=== PATIENT | female | born 1935 | race Caucasian/White ===

== ENCOUNTER 2023-08-12 23:15 | Inpatient (IN) | payer OTHER, SELFPAY ==
[2023-08-12 19:51] VITALS: BMI 23.7
[2023-08-12 19:55] VITALS: BP 133/66
[2023-08-12 20:00] VITALS: BP 116/68
--- NOTE | 2023-08-12 20:35 | ED.GENMED ---
History of Present Illness
General
Chief Complaint: Fall
Source: patient
Exam Limitations: none
Time Seen by Provider: 08/12/23 20:04
Nursing documentation reviewed up to this point in time: agreed with
Travel History
Have you had any contact with someone who has COVID-19?: No
Do you have any symptoms of coronavirus? Fever > 100 degrees, chills, cough, shortness of breath, sore throat, loss of taste or smell, muscle aches, or headache?: No
History of Present Illness
History of Present Illness:
87-year-old female with past medical history of hypothyroidism presenting to the emergency department today with concerns of left-sided hip discomfort after a trip and fall. Patient claims he had a drink of wine she claims that she got tripped on
carpet and denies any syncopal episode. She is not sure if she hit her head but definitely hit her left hip and has had hip discomfort since. She is not able to walk since. Any movement of the left hip causes significant discomfort. Denies any
neck pain numbness weakness abdominal pain chest pain. Patient is not on blood thinners.
Review of Systems
Review of Systems
Allergies reviewed?: Yes
All Other Systems: ROS reviewed and negative except as documented in HPI and ROS
Phy Exam
Physical Exam
Physical Exam:
GENERAL: Alert , in no apparent distress
EYE: pupils equal and reactive
NECK: Supple, no significant adenopathy.
ENT: o/p clr, mmm.
CARDIAC: Regular rate and rhythm .
LUNGS: Clear breath sounds bilaterally, no acute respiratory distress, no wheezes/rales/rhonchi
ABDOMEN: Soft, without focal tenderness, no r/g, no cvat
NEUROLOGICAL: Alert and oriented, no focal neuro deficits
SKIN: Warm and dry, skin intact.
MUSCULOSKELETAL: Tender palpation to the left proximal femur and left hip region no overlying skin changes. Left leg is shortened compared to the right. Significant pain with any movement of joint. Otherwise normal range of motion and strength of
the upper extremities normal range of motion and strength of the right leg., well perfused.
PSYCH: Normal and appropriate interaction.
Course
Orders/Labs/Results
Orders:
Orders
08/12/23 20:04
Hip, Left 2-3 Views [CR Hip - LT w/wo Pel 2-3 Vw*] Urgent
Comment:
Reason For Exam: left hip pain
Include a pelvis x-ray?: Yes
08/12/23 20:09
Electrocardiogram (*1) Urgent
Reason for Study: Abdominal Pain
EKG- Treatment ONCE
IV Insert/Care/Rem.- Treatment PRN
08/12/23 20:16
Type+Screen Urgent
Complete Blood Count/With Diff Urgent
Comprehensive Metabolic Panel Urgent
08/12/23 20:38
CT Head W/o Iv Contrast Urgent
Comment:
Reason For Exam: fall may have hit head, intoxicated
08/12/23 20:39
Fentanyl Citrate/Pf [Sublimaze] 25 mcg IV NOW STA
08/12/23 22:42
Admit/Transfer Patient As Directed
Co-Sign Provider:
Level of Care: Inpatient admission
Assign to:: Telemetry
Physician / Group: Vijay
Diagnosis: Hip Fracture
Reason for Telemetry: Arrhythmia
Date to Stop Telemetry: 08/15/23
Time to Stop Telemetry: 11:00
Reason for Hospitalization: Hip Fracture
Expected length of stay greater than two midnights?: Yes
ELOS- Estimated Length of Stay in days: 3
I certify the patient meets the requirements for IP care: Yes
08/12/23 22:43
Code Status As Directed
Resuscitation Status: Full Code
08/12/23 22:55
HYDROmorphone [Dilaudid] 0.5 mg IV Q4HPRN PRN
08/13/23 01:12
Oxycodone [Roxicodone] 5 mg PO Q4HPRN PRN
Prochlorperazine [Compazine] 5 mg IV Q6HPRN PRN
08/13/23 01:12
ORTHOPEDIC CONSULT Routine
Consulting Provider: Rizwan Fitzgerald
Was physician already notified: Yes
Reason for consult: L Hip Fracture
Activity As Directed
Activity Level: Bedrest
Bladder Scan As Directed
Follow Bladder Retention/Intermittent Cath Algorithm?: Yes
PRN if no void in __ hours: 6
Frequency: Per Retention Algorithm
If Bladder Scan Result >: 400
then:: Straight cath
I/O [Intake/ Output] As Directed
Frequency: Per unit guidelines
Pneumatic Compression Sleeves As Directed
Type: Knee high
Straight Cath As Directed
Frequency: Per Retention Algorithm
Additional Instructions: straight cath as needed per acute urinary retention algorithm for 24 hrs
Additional Instructions: for bladder scan greater than 400 mL
Vital Signs As Directed
Frequency: Per unit guidelines
Oxygen Therapy [O2 Therapy] [RESP] Routine
Titrate/Wean O2 to maintain O2 sat greater than (%): 94
Rx Incentive Spirometry [RESP] Routine
Frequency: q1h while awake
DX Deep Vein Thrombosis Video Routine
08/13/23 03:00
Acetaminophen [Tylenol] 1,000 mg PO TID
08/13/23 04:53
Basic Metabolic Panel IN AM
Complete Blood Count/No Diff IN AM
08/13/23 Breakfast
NPO
Allow oral meds: Yes
Allow clear liquids: Sips of Clears
Levothyroxine [Synthroid] 50 mcg PO DAILY@0600
08/13/23 08:00
Docusate Sodium [Colace] 100 mg PO BID
Escitalopram Oxalate [Lexapro] 10 mg PO DAILY
Pantoprazole [Protonix] 40 mg PO DAILY
Polyethylene Glycol Powder [Miralax] 17 grams PO DAILY PRN
08/13/23 22:00
Melatonin 3 mg PO HS PRN
Sennosides [Senokot] 17.2 mg PO HS
08/15/23 11:00
DC Protocol for Telemetry ONCE
Abnormal Lab Results
08/12/23
20:16
WBC 11.0 H 10^3/uL
(4.8-10.8)
Abs Immat Gran (auto) 0.2 H 10^3/uL
(0-0.05)
Absolute Neuts (auto) 7.7 H 10^3/uL
(1.4-6.5)
Absolute Monos (auto) 0.7 H 10^3/uL
(0.1-0.6)
Immature Gran % 1.8 H %
(0-0.5)
Lymphocytes % 19.0 L %
(20.5-51.1)
08/12/23 20:16
08/12/23 20:16
Vital Signs
Initial and Last Documented VS:
Initial Vital Signs
Temp Pulse Resp BP Pulse Ox
98.1 F 65 23 133/66 97
08/12/23 19:55 08/12/23 19:55 08/12/23 19:55 08/12/23 19:55 08/12/23 19:55
Last Documented Vital Signs
Temp Pulse Resp BP Pulse Ox
98.1 F 82 18 118/67 95
08/13/23 15:00 08/13/23 15:00 08/13/23 15:00 08/13/23 15:00 08/13/23 15:00
MDM/Problems Addressed
MDM/Problems Addressed:
87-year-old female presenting to the emergency department after mechanical fall landing mainly on the left hip. She does not think she hit her head but is not 100% sure. She did have some wine tonight with dinner. Vital signs normal upon arrival
patient with significant pain to the left hip unable to move at the left hip secondary to pain. Otherwise denies any additional symptoms no tenderness to the neck normal HEENT exam no abdominal pain no back pain full range of motion strength of the
upper extremities and right leg. Plan for imaging of the left hip and head CT. Hip x-ray showing left-sided hip fracture patient admitted for orthopedic intervention tomorrow morning orthopedics was contacted directly. N.p.o. midnight.
*Critical Care Note
Total Time (30-74mins, 75-104mins- exclusive of procedures): Not Applicable
ED Attending Note
-
Portions of this chart may have been created with voice recognition software.� Occasional wrong word or��sound alike� substitutions may have occurred due to the inherent limitations of voice recognition software.
Discharge Plan
Departure
Patient Disposition: Admit
Date of Disposition: 08/12/23
Time of Disposition: 22:06
Admit to: Med/Surg
Admit to doctor: Vijay
Presentation/result/management discussed w/ accepting MD/DO: Hospitalist
Patient with high blood pressure during this ER visit?: No
Condition: Good
Covid-19: Not Applicable
Discharge Problem:
Closed fracture of left hip
Interventions
Interventions:
*Risk Screen - Suicide Last Done: 08/13/23 00:46
*General Assessment Last Done: 08/12/23 20:00
*Neglect/Abuse Screening Last Done: 08/12/23 20:00
ED- Fall Risk Assessment Last Done: 08/12/23 20:00
*ED COVID-19 Vaccine History Last Done: 08/13/23 00:46
*Nursing Disposition Last Done: 08/13/23 00:30
ED-Musculoskeletal Assessment Last Done: 08/12/23 20:10
ED- Neurological Assessment Last Done: 08/12/23 20:10
ED-Skin Assessment Last Done: 08/12/23 21:00
Discharge Date and Time
Discharge Date/Time: 08/13/23 00:30
[2023-08-12 20:42] LABS: % Basophils 0.8 % (0-2); % Eosinophils 2.3 % (0-6); % Immature Granulocytes 1.8 % (0-0.5); % Monocytes 6.4 % (1.7-9.3); % Neutrophils 69.7 % (42.2-75.2); Absolute Basophils 0.1 10^3/uL (0-0.2); Absolute Eosinophils 0.3 10^3/uL (0-0.7); Absolute Immature Granulocytes 0.2 10^3/uL (0-0.05); Absolute Lymphocytes 2.1 10^3/uL (1.2-3.4); Absolute Monocytes 0.7 10^3/uL (0.1-0.6); Absolute Neutrophils 7.7 10^3/uL (1.4-6.5); Hematocrit 39.9 % (37.0-47.0); Hemoglobin 13.6 g/dL (12.0-16.0); Mean Corp Hgb Conc. 34.1 g/dL (33.0-37.0); Mean Corpuscular Volume 90.9 fL (81.0-99.0); Mean Platelet Volume 9.4 fL (7.4-10.4); Nucleated Red Blood Cells % 0 %; Platelet Count 252 10^3/uL (130-400); Red Blood Cell Count 4.39 10^6/uL (4.20-5.40); Red Cell Dist. Width 13.3 % (11.5-14.5)
[2023-08-12 21:00] VITALS: BP 119/65
[2023-08-12] MEDS: SUBLIMAZE 25 MCG IV (21:01)
[2023-08-12 21:02] LABS: ALT (SGPT) 19 U/L (0-35); AST (SGOT) 29 U/L (14-36); Alkaline Phosphatase 61 U/L (38-126); Blood Urea Nitrogen 13 mg/dl (7-17); Calcium 9.6 mg/dl (8.4-10.2); Carbon Dioxide 23 mmol/L (22-30); Chloride 106 mmol/L (98-107); Estimated Creatinine Clearance 44 ml/min; Glucose 86 mg/dl (70-99); Sodium 135 mmol/L (135-145); Total Bilirubin 0.3 mg/dl (0.2-1.3); Total Protein 6.4 g/dl (6.3-8.2); eGFR > 60.00
--- NOTE | 2023-08-12 22:47 | HPS.HSE ---
Family Physician
-
Family Physician: Roney Astudillo
Chief Complaint
-
Fall, Hip Pain
History of Present Illness
Patient is an 87y F with PMH significant for hypothyroidism and anxiety / depression who presents to ED complaining of left hip pain s/p fall at home this evening. Patient states that she has been in her usual state of good health. This evening
at dinner she had 1-2 glasses of wine. She was walking back to her assisted living apartment when she fell to her L, landing on her side. Patient states that she did not strike her head nor lose consciousness. Patient denies any prodrome of
lightheadedness, dizziness, nausea, headache, etc prior to the fall. She denies any obvious trip or stumble that led to the fall.
Patient has no history of frequent falls and ambulates without an assist device at baseline.
Patient noted immediate pain in the L hip area. She was brought to the ED for further evaluation.
Medical History
Past Medical History
Past Medical History: Reports Other
Additional Past Medical History:
Hypothyroidism
DDD / Arthritis
GERD
Anxiety / Depression
Past Surgical History: Reports Other
Additional Past Surgical History:
Left Shoulder Surgery
Social History
Tobacco: Former Smoker (Quit smoking > 40 years ago.)
Alcohol: Daily (1 glass daily)
Drug: None
Personal:
Living: Assisted Living
Family History
Family History: Not pertinent
Allergies / Home Medications
Allergies reflects when Allergies were last updated in [email or web address].
Home Medications with original date entered in [email or web address]
Allergy/Medication List:
Allergies
Allergy/AdvReac Type Severity Reaction Status Date / Time
No Known Allergies Allergy Unverified 08/12/23 19:59
Home Medications
ascorbic acid (vitamin C) 500 mg tablet (Vitamin C) 500 mg PO DAILY 08/12/23
biotin 10,000 mcg chewable tablet (Hair, Skin and Nails (biotin)) 1 mcg PO DAILY 08/12/23
celecoxib 100 mg capsule (Celebrex) 100 mg PO BID 08/12/23
escitalopram oxalate 10 mg tablet 10 mg PO DAILY 08/12/23
zrfhuxehlpx-htkkwvmml-ibiw437-hyal 750 mg-100 mg-125 mg-1.65 mg tablet (Glucosamine Chondroit Complx Advan) 1 tab PO DAILY 08/12/23
guaifenesin 400 mg tablet (Mucus Relief) 400 mg PO Q4H PRN congestion 08/12/23
levothyroxine 50 mcg tablet 50 mcg PO DAILY 08/12/23
meclizine 25 mg tablet (Dramamine (meclizine)) 25 mg PO BID PRN dizziness 08/12/23
melatonin 3 mg tablet 3 mg PO HS 08/12/23
rotrsais-axf-auryp ac 400 mcg-calcium carb 500 mg-vit K1 20 mcg tablet (Women's 50 Plus Multivitamin) 1 tab PO DAILY 08/12/23
omeprazole 20 mg capsule,delayed release 20 mg PO DAILY 08/12/23
vitamin B complex 1 tab PO DAILY 08/12/23
Review of Systems
-
History Source: Patient
A 12 point ROS was completed and negative except as noted: Yes
Constitutional: Denies Fever or Chills
Respiratory: Denies Cough or Trouble Breathing
Cardiac: Denies Chest Pain, Diaphoresis, Palpitations or Syncope
Abdomen/GI: Denies Abdominal Pain, Nausea, Vomiting or Diarrhea
: Denies Dysuria, Frequency or Flank Pain
Musculoskeletal: Reports Joint Pain; Denies Edema
Neurological: Denies Dizzy or Headache
Psych: Denies Depression or Anxiety
Physical Exam
Vital Signs
Vital Signs
Temp Pulse Resp BP Pulse Ox
98.1 F 65 23 133/66 97
08/12/23 19:55 08/12/23 19:55 08/12/23 19:55 08/12/23 19:55 08/12/23 19:55
Physical Exam
General: Other (87y F in no acute distress.)
HEENT: Moist mucous membranes and PERRLA
Respiratory: Clear; No Wheezes, Rales or Rhonchi
Cardiac: S1/S2 and Regular Rhythm; No Murmur
GI: Soft, Non Tender, Non Distended and Normal Bowel Sounds
Musculoskeletal: No Clubbing, No Cyanosis, No Edema and Other (Leg lengths appear equal. No abnormal rotation.)
Neuro: AO x 3
Laboratory Results
-
08/12/23 20:16
08/12/23 20:16
Laboratory Results
Total Bilirubin 0.3 mg/dl (0.2-1.3) 08/12/23 20:16
AST 29 U/L (14-36) 08/12/23 20:16
ALT 19 U/L (0-35) 08/12/23 20:16
Alkaline Phosphatase 61 U/L (38-126) 08/12/23 20:16
Impression/Plan
-
A/P: Patient is an 87y F with PMH significant for hypothyroidism and anxiety / depression who presentsto ED complaining of L hip pain s/p fall at home / assisted living.
Left Hip Fracture
- Admit for further evaluation and treatment.
- Bedrest / pain control overnight.
- Ortho consulted for operative repair - likely in the AM.
- Patient has no personal history of heart disease, [place], CVA, etc.
- No prior history of complications related to anesthesia / surgery.
- Patient is average risk for complications compared to an otherwise healthy individual of her age.
- Benefits of planned procedure outweigh potential risks.
- OK to proceed to OR as planned without additional pre-op testing.
- PT / OT post-op.
Fall at Home
- Unclear mechanism of fall and patient denies any obvious stumble or any prodrome of dizziness, lightheadedness, etc.
- Will monitor on tele overnight to rule out arrhythmia - though this seems unlikely.
- PT / OT evaluations after surgery.
- Patient does note that she had two glasses of wine with dinner tonight (typically has 1) - this may have contributed to her fall.
Hypothyroidism
- Stable. Continue current T4 supplementation.
GERD
- Stable. Continue daily PPI.
Anxiety / Depression
- Stable. Continue Lexapro.
- Melatonin PRN for insomnia.
DVT Prophylaxis: SCDs for now. Post-op per Ortho.
Code Status: Full
[2023-08-12] MEDS: DILAUDID 0.5 MG IV (23:03)
[2023-08-13] VITALS (14 sets, daily range): BP systolic 112–155; BP diastolic 62–87; BMI 23.1
--- NOTE | 2023-08-13 02:21 | PTCARENOTE ---
Pt transferred to unit from ED 00:30 dx Left hip fracture. Pt's daughter at the bedside, pt vs WNL, slight temp 99.0, NPO for sx in am, oriented to unit, hip precautions maintained.
[2023-08-13] MEDS: ROXICODONE 5 MG PO ×2 (02:38→21:48)
[2023-08-13] MEDS: SYNTHROID 50 MCG PO (05:20)
[2023-08-13 06:19] LABS: Hematocrit 35.9 % (37.0-47.0); Mean Corp Hgb Conc. 33.4 g/dL (33.0-37.0); Mean Corpuscular Hgb 30.8 pg (27.0-31.0); Mean Corpuscular Volume 92.3 fL (81.0-99.0); Mean Platelet Volume 9.8 fL (7.4-10.4); Platelet Count 211 10^3/uL (130-400); Red Blood Cell Count 3.89 10^6/uL (4.20-5.40); Red Cell Dist. Width 13.3 % (11.5-14.5); White Blood Cell Count 11.7 10^3/uL (4.8-10.8)
--- NOTE | 2023-08-13 06:55 | W.PN.UPDATE ---
Update Note
Progress Note Update
Full orthopedic consult dictated:
Patient sustained left hip intertrochanteric fracture and will remain n.p.o. She will need open reduction internal fixation later today with gamma nail. Surgery, risk and potential complications along with postoperative course reviewed. All
questions were answered. Maileef on-call to operating room. Surgery and blood consent signed. Surgical location marked.
[2023-08-13 06:56] LABS: Blood Urea Nitrogen 16 mg/dl (7-17); Calcium 8.9 mg/dl (8.4-10.2); Carbon Dioxide 25 mmol/L (22-30); Chloride 106 mmol/L (98-107); Estimated Creatinine Clearance 50 ml/min; Glucose 96 mg/dl (70-99); Potassium 4.5 mmol/L (3.5-5.1); Sodium 135 mmol/L (135-145); eGFR > 60.00
[2023-08-13] MEDS: PROTONIX 40 MG PO (08:08)
[2023-08-13] MEDS: TYLENOL 1000 MG PO ×3 (08:09→22:48)
[2023-08-13] MEDS: LEXAPRO 10 MG PO (08:09)
[2023-08-13] MEDS: COLACE 100 MG PO ×2 (08:09→22:48)
--- NOTE | 2023-08-13 10:12 | W.PN.HOSP.TC ---
Today's Communication/Plan
-
see outlined plan
Assessment / Plan
Assessment / Plan
Assessment:
Left Hip Fracture
- X-ray: Comminuted acute fracture of the intertrochanteric left proximal femur with displacement
- pain control
- OR Today for open reduction and internal fixation of the left hip fracture with gamma nail
- see H&P for medical clearance (deemed average risk per Dr. Linares)
Fall at Home
- Unclear mechanism of fall and patient denies any obvious stumble or any prodrome of dizziness, lightheadedness, etc.
- Will monitor on tele overnight to rule out arrhythmia - though this seems unlikely.
- PT/OT evaluations after surgery.
- Patient does note that she had two glasses of wine with dinner tonight (typically has 1) - this may have contributed to her fall.
Hypothyroidism
- Stable. continue current T4 supplementation.
GERD
- Stable. continue daily PPI.
Anxiety/Depression
- Stable. continue Lexapro.
- Melatonin PRN for insomnia.
Chronic back pain
- hold Celebrex until post-op
DVT Prophylaxis: SCDs for now. Post-op per Ortho.
Code Status: Full
Anticipated Discharge: > 48 hours
Subjective/Interval History
-
Date of Service: August 13, 2023
denies any new complaints
for OR today
Objective Data
-
Labs:
Laboratory Results
08/13/23
04:53
WBC 11.7 H
Hgb 12.0
Hct 35.9 L
Plt Count 211
Sodium 135
Potassium 4.5
Chloride 106
Carbon Dioxide 25
BUN 16
Creatinine 0.7
Glucose 96
Calcium 8.9
Vital Signs:
Vital Signs
Temp Pulse Resp BP Pulse Ox
97.9 F 76 18 147/62 95
08/13/23 07:00 08/13/23 07:00 08/13/23 07:00 08/13/23 07:00 08/13/23 07:00
I&O
08/12/23 08/13/23 08/14/23
06:59 06:59 06:59
Intake Total 60 / 60
Output Total 400 / 400
Balance -340 / -340
Physical Exam
-
General: No Apparent Distress
HEENT: Normocephalic and Atraumatic
Respiratory: Negative Wheezes or Rales
Cardiac: Regular Rhythm and S1/S2
GI: Soft
Musculoskeletal: No Edema
Neuro: AO x 3
Hematologic / Lymphatic: No Lymphadenopathy
Psych: Calm
Data Reviewed
-
Total Time Spent with Patient (in minutes): 42
Labs: Labs Reviewed by me
--- NOTE | 2023-08-13 13:21 | CM ---
Addendum entered by ZOILA Gaitan 08/13/23 16:51:
updated family and patient no contract for snf at [facility] or [facility]. sent more referrals to [facility] contracted snf.
Original Note:
MEt with patient and her dgtr. Patient lives at [facility] independent living with her . uses rolling walker. There are not steps at facility. Patient has been independent, does not use device to ambulate. The apartment has shower chair,
grab bars in shower, grab bars by toilet. Discussed SNF rehab options if patient cannot go home with home care. Spoke to [facility] and they have Luis A grahamab on site. Patient could get nursing from home care agency that works with Annette Coburn.
Dgtr provided with options list and Medicare.gov rating system of snf.
Surgical repair scheduled later today with Dr. Fitzgerald.
Cm to follow for discharge planning.
[2023-08-13] MEDS: TYLENOL PO (15:49)
--- NOTE | 2023-08-13 20:48 | W.PN.UPDATE ---
Update Note
Progress Note Update
87F s/p L hip CMN with Dr. Fitzgerald
-Weightbearing as tolerated to left lower extremity
-PT/OT/discharge planning
-Regular diet placed for per primary
-Pain regimen in place
-DVT prophylaxis 325 mg daily x 30 days unless otherwise recommended by primary
-Postop antibiotics of Ancef as ordered times every 8
-Orthopedic surgery will continue to follow
--- NOTE | 2023-08-13 21:50 | PTCARENOTE ---
Pt arrived to 2S via bed from PACU. Pt aaox3 but drowsy. VSS. Pts family at bedside. Pt complains of pain. Pain meds given. 3 aquacell dressings to the left hip C/D/I. Head to to Assessment complete. Bed locked and in the lowest position. Call nair
with in reach.
[2023-08-13] MEDS: SENOKOT 17.1999999999999993 MG PO (22:48)
[2023-08-13] MEDS: ASPIRIN 325 MG PO (22:48)
[2023-08-14] VITALS (10 sets, daily range): BP systolic 92–125; BP diastolic 49–89; PULSE 77–78; O2SAT 95
[2023-08-14] MEDS: ANCEF 5 IV ×2 (04:57→12:17)
[2023-08-14] MEDS: SYNTHROID 50 MCG PO (05:01)
[2023-08-14] MEDS: ROXICODONE 5 MG PO ×2 (05:25→21:20)
[2023-08-14 06:18] LABS: Hemoglobin 11.3 g/dL (12.0-16.0); Mean Corp Hgb Conc. 33.2 g/dL (33.0-37.0); Mean Corpuscular Hgb 30.7 pg (27.0-31.0); Mean Corpuscular Volume 92.4 fL (81.0-99.0); Mean Platelet Volume 9.8 fL (7.4-10.4); Platelet Count 208 10^3/uL (130-400); Red Blood Cell Count 3.68 10^6/uL (4.20-5.40); Red Cell Dist. Width 13.3 % (11.5-14.5)
[2023-08-14 06:50] LABS: Blood Urea Nitrogen 15 mg/dl (7-17); Calcium 8.9 mg/dl (8.4-10.2); Carbon Dioxide 23 mmol/L (22-30); Chloride 102 mmol/L (98-107); Estimated Creatinine Clearance 58 ml/min; Glucose 140 mg/dl (70-99); Potassium 4.4 mmol/L (3.5-5.1); Sodium 135 mmol/L (135-145); eGFR > 60.00
[2023-08-14] MEDS: COLACE 100 MG PO ×2 (08:47→21:20)
[2023-08-14] MEDS: TYLENOL 1000 MG PO ×3 (08:47→21:20)
[2023-08-14] MEDS: PROTONIX 40 MG PO (08:47)
[2023-08-14] MEDS: LEXAPRO 10 MG PO (08:47)
[2023-08-14] MEDS: ASPIRIN 325 MG PO (08:47)
--- NOTE | 2023-08-14 09:27 | W.PN.HOSP.TC ---
Today's Communication/Plan
-
PT/OT with dc planning
follow ortho recs post-op
Assessment / Plan
Assessment / Plan
Assessment:
Left Hip Fracture
- X-ray: Comminuted acute fracture of the intertrochanteric left proximal femur with displacement
- s/p left cephalomedullary nail 08/12
- Patient may be WBAT with assistive device
- ASA 325 mg daily x4 weeks for DVT ppx.
- Maintain surgical dressing until 7-10 days post-op. Staple removal at 2 weeks post-op.
- Ortho f/u OP
- PT/OT - agreeable to SNF placement if recommended
Fall at Home
- Unclear mechanism of fall and patient denies any obvious stumble or any prodrome of dizziness, lightheadedness, etc.
- no events on tele
- PT/OT - agreeable to SNF placement if recommended
- Patient does note that she had two glasses of wine with dinner tonight (typically has 1) - this may have contributed to her fall.
Hypothyroidism
- Stable. continue current T4 supplementation.
GERD
- Stable. continue daily PPI.
Anxiety/Depression
- Stable. continue Lexapro.
- Melatonin PRN for insomnia.
Chronic back pain
- hold Celebrex until post-op
DVT Prophylaxis: SCDs + ASA per Ortho.
Code Status: Full
Anticipated Discharge: 24 - 48 hours
Subjective/Interval History
-
Date of Service: August 14, 2023
denies any new complaints at present
Objective Data
-
Labs:
Laboratory Results
08/14/23
05:40
WBC 14.0 H
Hgb 11.3 L
Hct 34.0 L
Plt Count 208
Sodium 135
Potassium 4.4
Chloride 102
Carbon Dioxide 23
BUN 15
Creatinine 0.6
Glucose 140 H
Calcium 8.9
Vital Signs:
Vital Signs
Temp Pulse Resp BP Pulse Ox
98.2 F 76 17 119/84 94
08/14/23 06:55 08/14/23 06:55 08/14/23 06:55 08/14/23 06:55 08/14/23 06:55
I&O
08/13/23 08/14/23 08/15/23
06:59 06:59 06:59
Intake Total 60 / 60 780 / 780
Output Total 400 / 400 550 / 550
Balance -340 / -340 230 / 230
Physical Exam
-
General: No Apparent Distress
HEENT: Normocephalic and Atraumatic
Respiratory: Negative Wheezes
Cardiac: Regular Rhythm and S1/S2
GI: Soft
Musculoskeletal: No Edema
Neuro: AO x 3
Hematologic / Lymphatic: No Lymphadenopathy
Psych: Calm
Data Reviewed
-
Total Time Spent with Patient (in minutes): 42
Labs: Labs Reviewed by me
--- NOTE | 2023-08-14 09:32 | W.PN.ORTHO ---
Today's Communication / Plan
-
87 yo F POD 1 left cephalomedullary nail under the direction of Dr. Fitzgerald
--Patient may be WBAT with assistive device. We appreciate the assistance of PT/OT.
--Recommend ASA 325 mg daily x4 weeks for DVT ppx.
--Hgb 11.3 this AM. Continue to monitor.
--Pain management per primary.
--Maintain surgical dressing until 7-10 days post-op. Staple removal at 2 weeks post-op.
--Case management consult for discharge planning.
--Orthopedics will continue to follow along.
Assessment
.
Distal Motor Intact: Yes
Dressing:
Clean, dry and intact.
Plan
.
Surgery / Date: L hip CMN, Amilcar, 08/12
DVT Prophylaxis: Aspirin
Activity:
Out of bed.
PT/OT
Subjective
.
.:
Ms. Berger is POD1 following her left hip cephalomedullary nail performed by Dr. Fitzgerald. She is resting comfortably in bed this morning, and reports she is doing much better than before surgery. Her pain is much improved, and she has been able
to get up and ambulate with the assistance of a walker.
Vital Signs and Labs
.
Vital Signs and Labs:
Lab Results
08/14/23 05:40
08/14/23 05:40
Temp Pulse Resp BP Pulse Ox
98.2 F 76 17 119/84 94
08/14/23 06:55 08/14/23 06:55 08/14/23 06:55 08/14/23 06:55 08/14/23 06:55
Physical Exam
-
Directed exam of the left lower extremity reveal Aquacel dressings intact with slight strikethrough of blood on proximal dressings. No tenderness to palpation about the hip. Thigh soft and compressible. Calf soft and nontender. Patient able to
wiggle toes, plantar and dorsiflex ankle. Neurovascularly intact distally.
[2023-08-14] MEDS: FLUSH (NSS) 2 FLUSH IV (12:17)
--- NOTE | 2023-08-14 15:42 | CM ---
Discharge Plan of Care: Intitial therapy recommendation was for SNF. [facility] accepted. Today PT evaluation and recommendation is now acute rehab. Patient, daughter and in agreement and preference is [facility]. Will forward referral.
[2023-08-14] MEDS: SENOKOT 17.1999999999999993 MG PO (21:20)
[2023-08-15] VITALS (7 sets, daily range): BP systolic 106–135; BP diastolic 60–75; PULSE 77–78; O2SAT 97
[2023-08-15] MEDS: SYNTHROID 50 MCG PO (05:27)
[2023-08-15] MEDS: ROXICODONE 5 MG PO ×2 (05:36→20:02)
[2023-08-15 06:41] LABS: Hemoglobin 9.6 g/dL (12.0-16.0); Mean Corp Hgb Conc. 33.1 g/dL (33.0-37.0); Mean Corpuscular Hgb 31.1 pg (27.0-31.0); Mean Corpuscular Volume 93.9 fL (81.0-99.0); Platelet Count 193 10^3/uL (130-400); Red Blood Cell Count 3.09 10^6/uL (4.20-5.40); Red Cell Dist. Width 13.5 % (11.5-14.5); White Blood Cell Count 11.9 10^3/uL (4.8-10.8)
--- NOTE | 2023-08-15 06:44 | W.PN.ORTHO ---
Today's Communication / Plan
-
PT/OT
Weightbearing as tolerated
Mechanical devices/aspirin for DVT prophylaxis
Skin clip removal 2 weeks postop
Follow-up orthopedics 1 month to check progress
[facility] once medically stable
Orthopedics to sign off for now.
Assessment
.
Distal Motor Intact: Yes
Dressing:
Clean, dry and intact.
Plan
.
Surgery / Date: L hip CMN, Amilcar, 08/12
DVT Prophylaxis: Aspirin
Activity:
Out of bed.
PT/OT
Discharge Plan: Rehab
Subjective
.
.:
Patient resting comfortably.
Vital Signs and Labs
.
Vital Signs and Labs:
Temp Pulse Resp BP Pulse Ox
97.9 F 70 18 125/61 96
08/15/23 03:28 08/15/23 03:28 08/15/23 03:28 08/15/23 03:28 08/15/23 03:28
[2023-08-15 07:08] LABS: Blood Urea Nitrogen 18 mg/dl (7-17); Calcium 8.6 mg/dl (8.4-10.2); Carbon Dioxide 30 mmol/L (22-30); Chloride 106 mmol/L (98-107); Estimated Creatinine Clearance 50 ml/min; Glucose 90 mg/dl (70-99); Potassium 4.4 mmol/L (3.5-5.1); Sodium 137 mmol/L (135-145); eGFR > 60.00
[2023-08-15] MEDS: ASPIRIN 325 MG PO (08:40)
[2023-08-15] MEDS: LEXAPRO 10 MG PO (08:40)
[2023-08-15] MEDS: TYLENOL 1000 MG PO ×2 (08:40→16:29)
[2023-08-15] MEDS: COLACE 100 MG PO (08:40)
[2023-08-15] MEDS: PROTONIX 40 MG PO (08:43)
--- NOTE | 2023-08-15 09:04 | W.PN.HOSP.TC ---
Today's Communication/Plan
-
check UA With subjective chills
CT neck for neck pain and recent fall
resume Celebrex
DC Planning SNF vs Acute
Assessment / Plan
Assessment / Plan
Assessment:
Left Hip Fracture
- X-ray: Comminuted acute fracture of the intertrochanteric left proximal femur with displacement
- s/p left cephalomedullary nail 08/12
- Patient may be WBAT with assistive device
- ASA 325 mg daily x 4 weeks for DVT ppx.
- Maintain surgical dressing until 7-10 days post-op. Staple removal at 2 weeks post-op.
- Ortho f/u OP
- PT/OT - agreeable to rehab (SNF vs Acute Rehab)
Fall at Home
- Unclear mechanism of fall and patient denies any obvious stumble or any prodrome of dizziness, lightheadedness, etc.
- no events on tele
- PT/OT - agreeable to SNF placement if recommended
- Patient does note that she had two glasses of wine with dinner tonight (typically has 1) - this may have contributed to her fall.
Neck pain
- with fall history, will check CT neck
Mild leukocytosis
subjective Chills
- no fevers
- check UA with frequent urination
- if respiratory symptoms arise, will check COVID/CXR
Hypothyroidism
- Stable. continue current T4 supplementation.
GERD
- Stable. continue daily PPI.
Anxiety/Depression
- Stable. continue Lexapro.
- Melatonin PRN for insomnia.
Chronic low back pain
- continue Celebrex
DVT Prophylaxis: SCDs + ASA per Ortho.
Code Status: Full
Dispo: SNF vs Acute when stable
Anticipated Discharge: 24 - 48 hours
Subjective/Interval History
-
Date of Service: August 15, 2023
reports some minor neck pain with side to side movements, she is unsure if she fell onto her neck during her fall
also reports chills, but no fevers and no other complaints
Objective Data
-
Labs:
Laboratory Results
08/15/23
05:27
WBC 11.9 H
Hgb 9.6 L
Hct 29.0 L
Plt Count 193
Sodium 137
Potassium 4.4
Chloride 106
Carbon Dioxide 30
BUN 18 H
Creatinine 0.7
Glucose 90
Calcium 8.6
Vital Signs:
Vital Signs
Temp Pulse Resp BP Pulse Ox
98.2 F 83 17 117/63 94
08/15/23 07:10 08/15/23 07:10 08/15/23 07:10 08/15/23 07:10 08/15/23 07:10
I&O
08/14/23 08/15/23 08/16/23
06:59 06:59 06:59
Intake Total 780 / 780 717 / 717
Output Total 550 / 550
Balance 230 / 230 717 / 717
Physical Exam
-
General: No Apparent Distress
HEENT: Normocephalic and Atraumatic
Respiratory: Negative Wheezes or Rales
Cardiac: Regular Rhythm and S1/S2
GI: Soft and Nontender
Musculoskeletal: No Edema and Other (neck full ROM, no obvious fracture on palpation)
Neuro: AO x 3
Hematologic / Lymphatic: No Lymphadenopathy
Psych: Calm
Data Reviewed
-
Total Time Spent with Patient (in minutes): 41
Labs: Labs Reviewed by me
[2023-08-15] MEDS: CELEBREX 100 MG PO ×2 (11:07→19:58)
[2023-08-15] MEDS: DULCOLAX 10 MG RECTAL (11:23)
--- NOTE | 2023-08-15 16:26 | CM ---
Patient has been accepted to [facility] acute rehab. Requires [employer] insurance authorization. Auth initiated. Reference # [id number]. Records faxed to [phone]. Opal Antony RN is nurse reviewer. Her phone # is [phone].
[2023-08-15 18:26] LABS: Urine Albumin Negative (Neg - Trace); Urine Bilirubin Negative (Negative); Urine Character Clear (Clear); Urine Color Yellow; Urine Glucose Negative (Negative); Urine Ketone Negative (Negative); Urine Leukocyte Trace (Negative); Urine Nitrite Negative (Negative); Urine Occult Blood Negative (Negative); Urine Specific Gravity 1.015 (<1.030); Urine Urobilinogen Negative (Neg - 1+)
[2023-08-15 18:32] LABS: Urine Red Blood Cell None Seen /HPF (0-2); Urine White Cell 0-2 /HPF (0-5)
[2023-08-15] MEDS: COLACE PO ×2 (19:57→20:12)
[2023-08-15] MEDS: SENOKOT PO ×2 (19:59→20:11)
[2023-08-15] MEDS: MELATONIN 3 MG PO (20:14)
[2023-08-15] MEDS: TYLENOL PO (23:35)
[2023-08-16] MEDS: ROXICODONE 5 MG PO (05:34)
[2023-08-16] MEDS: SYNTHROID 50 MCG PO (05:34)
[2023-08-16 05:53] LABS: Hematocrit 26.2 % (37.0-47.0); Hemoglobin 8.9 g/dL (12.0-16.0); Mean Corpuscular Hgb 30.9 pg (27.0-31.0); Mean Platelet Volume 9.8 fL (7.4-10.4); Platelet Count 217 10^3/uL (130-400); Red Blood Cell Count 2.88 10^6/uL (4.20-5.40); Red Cell Dist. Width 13.4 % (11.5-14.5); White Blood Cell Count 9.3 10^3/uL (4.8-10.8)
[2023-08-16 06:34] LABS: Blood Urea Nitrogen 21 mg/dl (7-17); Calcium 8.6 mg/dl (8.4-10.2); Carbon Dioxide 30 mmol/L (22-30); Chloride 105 mmol/L (98-107); Estimated Creatinine Clearance 50 ml/min; Glucose 92 mg/dl (70-99); Potassium 4.2 mmol/L (3.5-5.1); Sodium 136 mmol/L (135-145); eGFR > 60.00
[2023-08-16] MEDS: LEXAPRO 10 MG PO (07:46)
[2023-08-16] MEDS: CELEBREX 100 MG PO ×2 (07:46→19:46)
[2023-08-16] MEDS: COLACE 100 MG PO ×2 (07:46→19:46)
[2023-08-16] MEDS: PROTONIX 40 MG PO (07:46)
[2023-08-16] MEDS: ASPIRIN 325 MG PO (07:46)
[2023-08-16] MEDS: TYLENOL 1000 MG PO ×2 (07:47→16:41)
[2023-08-16 07:55] VITALS: BP 110/60
--- NOTE | 2023-08-16 09:47 | CM ---
CM received update from previous CM, auth has been denied for acute rehab, reason being they do not feel patient needs three hours of therapy, peer to peer review can be accepted until 08/19/23 by 5:00 p.m. to [phone]. CM spoke with patients
daughter Moraima [phone], provided update. CM will send referrals to [facility] for SNF. CM sent TT to [facility] with peer to peer review information. CM will continue to follow for discharge planning needs.
Plan; peer to peer review for acute rehab denial, SNF referrals sent us back up option.
--- NOTE | 2023-08-16 10:03 | CON.MD ---
Consultation - Medical
-
Referring Provider: Dr. Estrella Cochran
Chief Complaint: Left hip fracture
History of Present Illness: 87-year-old female with PMH (as below) presented to [facility] on 08/12/2023 after a fall after having 2 glasses of wine left side with significant left hip pain. She had a left hip intramedullary nail procedure
done 08/13/2023. Weightbearing as tolerated. Plan for full dose aspirin for 4 weeks for DVT prophylaxis with stable removal in 2 weeks. Noted to have chills 08/16/23. Overall patient is feeling tired, had chills earlier. Notes that she was just
told she has pneumonia and will need to take antibiotics. CT of the chest 08/15 noting:
IMPRESSION:
MILD to MODERATE MULTIFOCAL PERIPHERAL ENDOBRONCHIAL INFECTION (greatest in the inferior lingula). Mild to moderate amount of multifocal peripheral endobronchial impaction, bronchial wall thickening, and peripheral tree-in-bud endobronchial
opacities. Atypical mycobacterial infection is a diagnostic possibility.
RECOMMENDATION: If the patient is considered high risk for lung cancer, a follow-up chest CT examination in 12 months is recommended.
Past Medical History: Hypothyroidism, anxiety, depression, degenerative disc disease, arthritis, GERD
Procedure History: , left shoulder surgery
Family History: None pertinent
Social History:
Functional Level Premorbidly: Independent with all activities, gets 3 meals a day from assisted living.
Functional Level Currently:�� Min assist lower extremity self-care, min assist toilet transfer, min assist with transfers, min assist ambulating 10 feet x 2 with rolling walker.
Tobacco: Quit smoking over 40 years ago.
Alcohol: 1 glass of wine daily
Drug use: Denies
Lives with: Home in independent care portion of assisted living facility with spouse.
24-hour assistance available: Yes
Number of floors: 1
# steps to enter: 0
Driving: No
Occupation: Retired
�Allergies:
Allergy/AdvReac Type Severity Reaction Status Date / Time
No Known Allergies Allergy Unverified 08/12/23 19:59
Review of Systems:
Constitutional: (x) abNormal _fatigue. Having chills, just told she has pneumonia.
Eye: (x) Normal _
Ear/Nose/Throat: (x) Normal _
Respiratory: (x) Normal _
Cardiovascular: (x) Normal _
Gastrointestinal: (x) Normal _
Genitourinary: (x) Normal _
Musculoskeletal: (x) abNormal _hip pain
Integumentary: (x) Normal _
Neurologic: (x) Normal _
Psychiatric: (x) Normal _
Endocrine: (x) Normal _
Hematologic/Lymphatic: (x) Normal _
Allergic/Immunologic: (x) Normal _
Medications:
Active Current Visit Medication List
Category Date Time Status
Acetaminophen [Tylenol] Med 08/13/23 08:00 Active
1,000 mg PO TID
Aspirin Med 08/13/23 21:00 Active
325 mg PO DAILY
Bisacodyl [Dulcolax] Med 08/15/23 11:14 Active
10 mg RECTAL DAILYPRN PRN
Celecoxib [Celebrex] Med 08/15/23 10:00 Active
100 mg PO BID
Docusate Sodium [Colace] Med 08/13/23 08:00 Active
100 mg PO BID
Escitalopram Oxalate [Lexapro] Med 08/13/23 08:00 Active
10 mg PO DAILY
Flush (0.9% Sodium Chloride) [Flush (Nss)] Med 08/13/23 03:00 Active
See Dose Instructions IV PER PROTOCOL
HYDROmorphone [Dilaudid] Med 08/13/23 06:57 Active
0.5 mg IV Q4HPRN PRN
Levothyroxine [Synthroid] Med 08/13/23 06:00 Active
50 mcg PO DAILY@0600
Melatonin Med 08/13/23 22:00 Active
3 mg PO HS PRN
Oxycodone [Roxicodone] Med 08/13/23 01:12 Active
5 mg PO Q4HPRN PRN
Pantoprazole [Protonix] Med 08/13/23 08:00 Active
40 mg PO DAILY
Polyethylene Glycol Powder [Miralax] Med 08/13/23 08:00 Active
17 grams PO DAILY PRN
Prochlorperazine [Compazine] Med 08/13/23 01:12 Active
5 mg IV Q6HPRN PRN
Sennosides [Senokot] Med 08/13/23 22:00 Active
17.2 mg PO HS
Vitals:
Temp Pulse Resp BP Pulse Ox
99.2 F 74 16 110/60 95
08/16/23 07:55 08/16/23 07:55 08/16/23 07:55 08/16/23 07:55 08/16/23 07:55
Height 5 ft 4 in
Actual Weight 60.866 kg
Body Mass Index (BMI) 23.1
Physical Exam:
General Appearance/Observation: Well-developed, well-nourished female in no apparent distress.
Pain/Comfort Assessment: Mild to moderate pain in hip.
Mood/Affect: Appropriate
Integumentary/Operative Site: Left hip incisions with moderate upper Aquacel serosanguineous drainage, minimal otherwise. Significant bruising throughout the hip
�� Pressure Ulcer Evaluation: absent over heels.
Eyes: Conjunctiva/Lids: normal ��� Pupils: pupils equal round and reactive to light and Accommodation
Ears/Nose/Throat: oral mucosa moist,� throat clear.������������ Lips/Teeth/Gums: normal
Neck: No muscle spasm or tenderness
Cardiovascular: Heart: regular, no murmur
Pulses: dorsalis pedis 2+ bilaterally
Respiratory: Respiratory Effort/Chest Expansion: normal ������ Auscultation: Clear to auscultation bilaterally
Gastrointestinal: abdomen not tender, no distension, normal abdominal bowel sounds
Genitourinary: No [place]
Extremities: Edema: None Cyanosis: None Trophic changes: None
Neurology Exam:
Orientation: Alert, Oriented to self, Time, Place but takes significant time to recall.
Memory: Impaired
Repetition: Intact
Comprehension: Intact
Two step command: Intact
Naming: Intact
Cranial Nerves:
�� CNII: Pupillary light reflex: Intact��
�� CN III, IV, : Extraocular muscles: Intact
�� CN VII: Facial movement: Symmetric
�� CN VIII: Hearing: Normal
�� CN IX/X: Speech & swallow: Normal, Position of Uvula: Midline
�� CN XI: Shoulder shrug: Symmetric
�� CN XII: Tongue protrusion: Midline
Sensory:
�� Light touch: Intact in bilateral upper and lower extremities, no extinction to double simultaneous stimulation
Reflexes:
�� Biceps: 2+ bilaterally
�� Brachioradialis: 2+ bilaterally
�� Triceps: 2+ bilaterally
�� Patellar: 2+ bilaterally
�� Achilles: 2+ bilaterally
�� Babinski: Down going bilaterally
�� Clonus: None
�� Adilia: Negative bilaterally
Musculoskeletal:Motor: (Manual muscle scale 0-5)
Muscle SA EF WE EE FF FA HF KE DF EHL PF
Right� 4 5 5 5 5 5 4 5 5 5 5
Left 4 5 5 5 5 5 2 3 5 5 5
Tone: Normal in all extremities
Range of Motion: Passively within normal limits in all extremities
Lab Results
Laboratory Data
08/16/23 05:18
08/16/23 05:18
Total Bilirubin 0.3 mg/dl (0.2-1.3) 08/12/23 20:16
AST 29 U/L (14-36) 08/12/23 20:16
ALT 19 U/L (0-35) 08/12/23 20:16
Alkaline Phosphatase 61 U/L (38-126) 08/12/23 20:16
Total Protein 6.4 g/dl (6.3-8.2) 08/12/23 20:16
Albumin 4.0 g/dl (3.5-5.0) 08/12/23 20:16
Diagnostic Results: as per HPI
Assessment
87-year-old female with PMH (Hypothyroidism, anxiety, depression, degenerative disc disease, arthritis, GERD) with 08/12/2023 follow-up with left hip fracture s/p intramedullary nail 08/13/2023.
Plan
PM&R PT/OT to increase independence with ADLs, improve balance, coordination, endurance, strength, mobility, community reintegration, decreased burden of care on others and family education.
Left hip fracture s/p ORIF 08/13/2023: Monitor incision, pain control, weightbearing as tolerated, dressings can be removed postop day 7, karla removed postop day 14. Maintain full range of motion.
Pneumonia: Found on CT chest today. Patient noting chills and not feeling well. Could be partial reason for some slower cognitive processing. Further workup ongoing.
Hypothyroidism: levothyroxine
Postoperative anemia: Monitor. Continue to monitor.
FEN: Regular
Anxiety/depression: Psychology consult.� Monitor mood, adjust Lexapro as needed. Melatonin for sleep
Skin: monitor for pressure sores/rashes/lesions.
Pain: acetaminophen or oxycodone as needed. Celebrex 100 mg twice a day helpful.
Bowel: Senna, PRN bisacodyl.
Bladder: Time void, PVRs, PRN straight cath.
Alcohol use: Alcohol cessation suggested
GI Prophylaxis: Pantoprazole
DVT Prophylaxis: Mechanical and full dose aspirin.
Pulmonary: Incentive spirometry
Safety: Continue to reinforce assistance with all transfers.
Code Status:� Full code
Dispo (date/plan/equipment needs): Home with family care.
Functional and Medical Goals: Modified Independent with ADL�s, ambulation, transfers
Discharge Destination: Acute inpatient rehabilitation
Attending statement:
I saw and examined the patient today. Reviewed care plan with case management, patient and physician golf player assistant. I agree with the above subjective, physical exam, and plan as documented above.
A total of 60 minutes were spent with the patient preparing for the evaluation, obtaining history, performing examination and evaluation, counseling, data review, case management, care coordination, sales order processor, and EMR documentation.
Summary of recommendations:
- Discharge Destination: Acute inpatient rehabilitation
Left hip fracture s/p ORIF 08/13/2023: Monitor incision, pain control, weightbearing as tolerated, dressings can be removed postop day 7, karla removed postop day 14. Maintain full range of motion.
Pain: acetaminophen or oxycodone as needed. Celebrex 100 mg twice a day helpful.
DVT Prophylaxis: Mechanical and full dose aspirin.
Pneumonia: Found on CT chest today. Patient noting chills and not feeling well. Could be partial reason for some slower cognitive processing. Further workup ongoing.
Thank you for allowing me to care for your patient. Please contact me with any questions or concerns.
--- NOTE | 2023-08-16 10:55 | CM ---
Addendum entered by Becka Hay 08/16/23 14:32:
Per Dr. Shanks, peer to peer denied, patient only approved for SNF. CM awaiting response of accepting SNF facility. CM will continue to follow for discharge planning needs.
Plan; SNF pending accepting facility, will require auth.
Original Note:
Received call this AM from Opal Antony RN, at [facility] ([phone]). [facility] [employer] [facility] has declined admission to [facility] acute rehab. He does not feel patient requires 3 hours of therapy per day. Peer to peer is offered @
[phone]. [facility] has until 5PM on 08/19/23 to initiate peer to peer. Message relayed to current CM.
[2023-08-16 11:23] VITALS: BP 115/67; PULSE 73; O2SAT 93
--- NOTE | 2023-08-16 11:26 | W.PN.HOSP.TC ---
Today's Communication/Plan
-
start Rocephin, doxy. AM procal
DC Planning to SNF vs acute pending peer to peer process; but not stable today with antibiotics being initiated. CM aware.
Assessment / Plan
Assessment / Plan
Assessment:
Left Hip Fracture
- X-ray: Comminuted acute fracture of the intertrochanteric left proximal femur with displacement
- s/p left cephalomedullary nail 08/12
- Patient may be WBAT with assistive device
- ASA 325 mg daily x 4 weeks for DVT ppx.
- Maintain surgical dressing until 7-10 days post-op. Staple removal at 2 weeks post-op.
- Ortho f/u OP
- PT/OT - agreeable to rehab placement (SNF vs Acute Rehab pending auth)
Fall at Home
- Unclear mechanism of fall and patient denies any obvious stumble or any prodrome of dizziness, lightheadedness, etc.
- no events on tele
- PT/OT - agreeable to rehab placement
- Patient does note that she had two glasses of wine with dinner tonight (typically has 1) - this may have contributed to her fall.
Neck pain
- CT Cspine: Degenerative changes. No fracture.
Mild leukocytosis
subjective Chills
- mild temps
- UA clear
- CT chest (performed on follow up of lingular consolidation seen on C. Spine CT) shows: MILD to MODERATE MULTIFOCAL PERIPHERAL ENDOBRONCHIAL INFECTION (greatest in the inferior lingula). Mild to moderate amount of multifocal peripheral
endobronchial impaction, bronchial wall thickening, and peripheral tree-in-bud endobronchial opacities. Atypical mycobacterial infection is a diagnostic possibility.
- start Rocephin/doxy, day 1
- check procal
Hypothyroidism
- Stable. continue current T4 supplementation.
GERD
- Stable. continue daily PPI.
Anxiety/Depression
- Stable. continue Lexapro.
- Melatonin PRN for insomnia.
Chronic low back pain
- continue Celebrex
DVT Prophylaxis: SCDs + ASA per Ortho.
Code Status: Full
Dispo: SNF vs Acute when stable and auth obtained. Currently informed by CM that acute rehab denied by insurance; pending peer to peer by CM physician reviewer.
Anticipated Discharge: 24 - 48 hours
Subjective/Interval History
-
Date of Service: August 16, 2023
mild chills, low grade temp of 99
no hypoxia, no chest pain, no SOB
Objective Data
-
Labs:
Laboratory Results
08/16/23
05:18
WBC 9.3
Hgb 8.9 L
Hct 26.2 L
Plt Count 217
Sodium 136
Potassium 4.2
Chloride 105
Carbon Dioxide 30
BUN 21 H
Creatinine 0.7
Glucose 92
Calcium 8.6
Vital Signs:
Vital Signs
Temp Pulse Resp BP Pulse Ox
99.2 F 74 16 110/60 95
08/16/23 07:55 08/16/23 07:55 08/16/23 07:55 08/16/23 07:55 08/16/23 07:55
I&O
08/15/23 08/16/23 08/17/23
06:59 06:59 06:59
Intake Total 717 / 717 840 / 840
Output Total 400 / 400
Balance 717 / 717 440 / 440
Physical Exam
-
General: No Apparent Distress
HEENT: Normocephalic and Atraumatic
Respiratory: Negative Wheezes
Cardiac: Regular Rhythm and S1/S2
GI: Soft
Genito-urinary: No Costovertebral Tender
Musculoskeletal: No Edema
Neuro: AO x 3
Psych: Calm
Data Reviewed
-
Total Time Spent with Patient (in minutes): 41
Labs: Labs Reviewed by me
[2023-08-16 11:39] VITALS: BP 115/67; PULSE 74; O2SAT 93
[2023-08-16] MEDS: VIBRAMYCIN 100 MG PO ×2 (12:25→19:46)
[2023-08-16] MEDS: STERILE WATER FOR INJECTION 10 ML IV (12:25)
[2023-08-16] MEDS: ROCEPHIN 1000 MG IV (12:27)
[2023-08-16] MEDS: ANESTHETIC LOZENGE 1 LOZENGE PO (13:46)
[2023-08-16 14:56] VITALS: BP 122/56
[2023-08-16] MEDS: NON-FORMULARY ITEM 1 UNIT OPHTH (20:47)
[2023-08-16] MEDS: REFRESH EYE DROPS (PF) OPHTH ×2 (20:47→20:53)
[2023-08-16] MEDS: SENOKOT PO (20:48)
[2023-08-16] MEDS: NON-FORMULARY ITEM 15 UNIT PO (20:48)
[2023-08-16] MEDS: MELATONIN 3 MG PO (20:49)
[2023-08-16 23:00] VITALS: BP 119/68
[2023-08-16] MEDS: TYLENOL PO (23:00)
[2023-08-16] MEDS: STERILE WATER FOR INJECTION IV (23:00)
[2023-08-17] MEDS: SYNTHROID 50 MCG PO (05:14)
[2023-08-17 06:26] LABS: Hematocrit 25.5 % (37.0-47.0); Hemoglobin 8.4 g/dL (12.0-16.0); Mean Corp Hgb Conc. 32.9 g/dL (33.0-37.0); Mean Corpuscular Hgb 30.8 pg (27.0-31.0); Mean Corpuscular Volume 93.4 fL (81.0-99.0); Mean Platelet Volume 9.5 fL (7.4-10.4); Platelet Count 235 10^3/uL (130-400); Red Blood Cell Count 2.73 10^6/uL (4.20-5.40); Red Cell Dist. Width 13.6 % (11.5-14.5); White Blood Cell Count 8.6 10^3/uL (4.8-10.8)
[2023-08-17 06:54] LABS: Procalcitonin 0.06 ng/ml (0.0-0.25)
[2023-08-17 07:00] VITALS: BP 124/65
[2023-08-17 07:10] LABS: Blood Urea Nitrogen 23 mg/dl (7-17); Calcium 8.6 mg/dl (8.4-10.2); Carbon Dioxide 27 mmol/L (22-30); Chloride 107 mmol/L (98-107); Estimated Creatinine Clearance 58 ml/min; Glucose 98 mg/dl (70-99); Sodium 134 mmol/L (135-145); eGFR > 60.00
[2023-08-17] MEDS: CELEBREX 100 MG PO ×2 (07:35→19:14)
[2023-08-17] MEDS: VIBRAMYCIN 100 MG PO (07:35)
[2023-08-17] MEDS: TYLENOL 1000 MG PO ×3 (07:35→21:14)
[2023-08-17] MEDS: COLACE 100 MG PO ×2 (07:35→19:14)
[2023-08-17] MEDS: PROTONIX 40 MG PO (07:35)
[2023-08-17] MEDS: ASPIRIN 325 MG PO (07:35)
[2023-08-17] MEDS: LEXAPRO 10 MG PO (07:35)
[2023-08-17] MEDS: ROXICODONE 5 MG PO ×2 (09:32→19:26)
[2023-08-17 10:50] VITALS: BP 106/61; PULSE 88; O2SAT 96
[2023-08-17] MEDS: STERILE WATER FOR INJECTION 10 ML IV (11:03)
[2023-08-17] MEDS: ROCEPHIN 1000 MG IV (11:03)
--- NOTE | 2023-08-17 11:58 | W.PN.HOSP.TC ---
Today's Communication/Plan
-
Consult ID
Continue with empirical antibiotics for now
Await placement
Assessment / Plan
Assessment / Plan
Assessment:
Left Hip Fracture
- X-ray: Comminuted acute fracture of the intertrochanteric left proximal femur with displacement
- s/p left cephalomedullary nail 08/12
- Patient may be WBAT with assistive device
- ASA 325 mg daily x 4 weeks for DVT ppx.
- Maintain surgical dressing until 7-10 days post-op. Staple removal at 2 weeks post-op.
- Ortho f/u OP
- PT/OT - agreeable to rehab placement (SNF vs Acute Rehab pending auth)
Fall at Home
- Unclear mechanism of fall and patient denies any obvious stumble or any prodrome of dizziness, lightheadedness, etc.
- no events on tele
- PT/OT - agreeable to rehab placement
- Patient does note that she had two glasses of wine with dinner tonight (typically has 1) - this may have contributed to her fall.
Neck pain
- CT Cspine: Degenerative changes. No fracture.
Mild leukocytosis-resolved. Cannot rule out reactive to surgery
Chronic cough with CT chest findings as below
- CT chest (performed on follow up of lingular consolidation seen on C. Spine CT) shows: MILD to MODERATE MULTIFOCAL PERIPHERAL ENDOBRONCHIAL INFECTION (greatest in the inferior lingula). Mild to moderate amount of multifocal peripheral
endobronchial impaction, bronchial wall thickening, and peripheral tree-in-bud endobronchial opacities. Atypical mycobacterial infection is a diagnostic possibility.
-Not acting like typical bacterial pneumonia. Suspect chronic infectious diseases.
-Check inflammatory markers including CRP and ESR. Consult ID. While waiting for culture data continue with antibacterial treatments.
Acute anemia secondary to acute blood loss-last 2 days H&H is stable. She is not symptomatic without any chest pain or weakness/fatigue.
Hypothyroidism
- Stable. continue current T4 supplementation.
GERD
- Stable. continue daily PPI.
Anxiety/Depression
- Stable. continue Lexapro.
- Melatonin PRN for insomnia.
Chronic low back pain
- continue Celebrex
DVT Prophylaxis: SCDs + ASA per Ortho.
Code Status: Full
Total time spent on today's encounter was 52 minutes which included time spent in counseling the patient regarding diagnosis and treatment plan as listed above, goals of care, and symptom management. Case was discussed with nursing staff,
specialists.All labs and imaging personally reviewed by me. Remainder the time spent in detailed review of previous records, lab data, imaging, and other medical provider documentation.
Anticipated Discharge: 24 - 48 hours
Subjective/Interval History
-
Date of Service: August 17, 2023
Pain from the fracture repair site is okay.
Denies any prior history of lung issues. She did start having cough in the last 6 months. She brought it to the attention of the PCP but no further investigation was felt warranted. Mostly nonproductive cough but when she brings phlegm up it is
mostly clear.
Denies any shortness of breath with that. Remote smoker.
No prior history of pneumonias.
Denies any chronic sweats in the night or chills or fevers.
Objective Data
-
Labs:
Laboratory Results
08/17/23
06:18
WBC 8.6
Hgb 8.4 L
Hct 25.5 L
Plt Count 235
Sodium 134 L
Potassium 4.0
Chloride 107
Carbon Dioxide 27
BUN 23 H
Creatinine 0.6
Glucose 98
Calcium 8.6
Vital Signs:
Vital Signs
Temp Pulse Resp BP Pulse Ox
97.9 F 80 16 124/65 95
08/17/23 07:00 08/17/23 07:00 08/17/23 07:00 08/17/23 07:00 08/17/23 07:00
I&O
08/16/23 08/17/23 08/18/23
06:59 06:59 06:59
Intake Total 840 / 840 720 / 720
Output Total 400 / 400
Balance 440 / 440 720 / 720
Review of Systems
-
Constitutional: Denies Fever
EENT: Denies Sore Throat
Respiratory: Reports Cough; Denies Trouble Breathing
Cardiac: Denies Chest Pain
Abdomen/GI: Denies Abdominal Pain, Nausea or Vomiting
Neuro: Denies Dizzy
Physical Exam
-
HEENT: Moist Mucous Membranes
Respiratory: Clear to Auscultation; Negative Wheezes or Crackles
Cardiac: Regular Rhythm and S1/S2; Negative Tachycardic
GI: Soft
Neuro: AO x 3
Data Reviewed
-
Labs: Labs Reviewed by me
--- NOTE | 2023-08-17 13:58 | CON.ID ---
Consultation
-
Date/Time Consultation Requested: August 17, 2023 1156
Date/Time Consultation Performed: August 17, 2023 1400
Requesting Provider: Dr. Jignesh Vu
Performing Provider: Dr. Romelia Dodson
Reason for Consultation: Evaluate for chronic lung infection
Chief Complaint / Past History
Chief Complaint
Left hip pain
History of Present Illness
87-year-old female with history of hypothyroidism who fell at home after drinking 2 glasses of wine and came to the ER on August 11. Hip x-ray showed comminuted acute fracture of the intertrochanteric left proximal femur with displacement. On July
, she underwent left hip intramedullary nail. August 14, she complained of chills. UA negative.CT cervical spine ordered for neck pain which picked up right upper lobe linear opacity, which led to chest CT on August 15: With findings of multifocal
bilateral peripheral bronchial wall thickening and endobronchial impaction with clustered tree-in-bud endobronchial opacities bilaterally. There are multiple small peripheral subpleural pulmonary nodules. She was started on ceftriaxone and
doxycycline yesterday. Patient reports no history of chronic cough, GRAMAJO, weight loss , or poor appetite. She had been always active. Had mild cough with white phlegm prior to admission, now resolved, no sputum. I spoke to her daughter Moraima on the
phone. 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 She is following with [facility]. She is being observed only due to little to no symptoms.
Past History
Additional Past Medical History:
Hypothyroidism
Pulmonary ELIA, watchful observation
Anxiety/depression
Arthritis
Left shoulder surgery
Allergy History:
No Known Allergies Allergy (Unverified 08/12/23 19:59)
Medications Reviewed: Yes
Current Antibiotics:
Doxycycline
Ceftriaxone
Social History
Tobacco: Non-Smoker
Alcohol: Daily (1 glass of wine)
Drug: None
Living: Assisted Living
Family History
Family History: Not Pertinent
Review of Systems
Review of Systems
General: Negative Fever, Chills or Change in Appetite
HEENT: Negative Sinus Problems or Headache
Cardiovascular: Negative Chest Pain or Dyspnea
Respiratory: Negative Dyspnea or Cough
Gasteroenterology: Other (no diarrhea); Negative Weight Loss, Nausea or Vomiting
Genital / Urological: Negative Dysuria or Flank Pain
Skin / Hair / Nails: Negative Rash
Neurological: Negative Headache or Dizziness
All systems: All other systems were reviewed and were negative
Vital Signs
Temp Pulse Resp BP Pulse Ox
97.9 F 80 16 124/65 95
08/17/23 07:00 08/17/23 07:00 08/17/23 07:00 08/17/23 07:00 08/17/23 07:00
Physical Exam
Physical Exam
Constitutional: No Acute Distress and Comfortable
Eyes: Negative No Conjunctival Hemorrhage or Sclera Anicteric
Cardiovascular: Regular Rate and S1/S2
Pulmonary: Clear; Negative Wheezes, Rales, Rhonchi or Coarse
Gastrointestinal: Soft, Non Tender and Non Distended
Genito-Urinary: Negative CVA Tenderness
Extremities: Negative Edema
Neurological: AO x 3
Lab / Diagnostic Study Results
08/17/23 06:18
08/17/23 06:18
Abs Immat Gran (auto) 0.2 10^3/uL (0-0.05) H 08/12/23 20:16
Absolute Neuts (auto) 7.7 10^3/uL (1.4-6.5) H 08/12/23 20:16
Absolute Lymphs (auto) 2.1 10^3/uL (1.2-3.4) 08/12/23 20:16
Absolute Monos (auto) 0.7 10^3/uL (0.1-0.6) H 08/12/23 20:16
Absolute Basos (auto) 0.1 10^3/uL (0-0.2) 08/12/23 20:16
Immature Gran % 1.8 % (0-0.5) H 08/12/23 20:16
Neutrophils % 69.7 % (42.2-75.2) 08/12/23 20:16
Lymphocytes % 19.0 % (20.5-51.1) L 08/12/23 20:16
Monocytes % 6.4 % (1.7-9.3) 08/12/23 20:16
Eosinophils % 2.3 % (0-6) 08/12/23 20:16
Basophils % 0.8 % (0-2) 08/12/23 20:16
Procalcitonin 0.06 ng/ml (0.0-0.25) 08/17/23 06:18
Ur Squamous Epith Cells 3-5 /LPF (Few) 08/15/23 18:18
Microbiology Results
08/16/[address]: MILD to MODERATE MULTIFOCAL PERIPHERAL ENDOBRONCHIAL INFECTION (greatest in the inferior lingula). Mild to moderate amount of multifocal peripheral endobronchial impaction, bronchial wall thickening, and peripheral tree-in-bud
endobronchial opacities. Atypical mycobacterial infection is a diagnostic possibility.
Assessment / Plan
# Pulmonary ELIA, known history
- Follows with pulmonary at [facility] [address]
- Agree with observation only as patient without symptoms
- The CT findings are consistent with ELIA
- Follow-up with her [facility].
She should take a copy of current CT to her [facility] for comparison.
# CAP ruled out.
- Procal negative.
- Afebrile.
- Leukocytosis resolved prior to abx.
-DC doxycycline and ceftriaxone.
ID will sign off.
[2023-08-17 15:00] VITALS: BP 142/79
--- NOTE | 2023-08-17 15:39 | PTCARENOTE ---
Large amount of sanguineous fluid coming from patients middle aquacell dressing. Dr. Vu notified of large amounts of drainage and hemoglobin at 8.4. Dr. Vu stated that he will order hemoglobin and hematocrit in AM and to notify ortho.
Awilda Way notified and ordered to change middle aquacell dressing. Aquacell dressing changed by RN. Care ongoing at this time.
[2023-08-17] MEDS: NON-FORMULARY ITEM 1 UNIT PO (21:11)
[2023-08-17] MEDS: REFRESH EYE DROPS (PF) OPHTH ×2 (21:12→21:16)
[2023-08-17] MEDS: NON-FORMULARY ITEM 1 UNIT OPHTH (21:12)
[2023-08-17] MEDS: SENOKOT 17.1999999999999993 MG PO (21:14)
[2023-08-17] MEDS: MELATONIN 3 MG PO (21:15)
[2023-08-17 23:09] VITALS: BP 113/63
[2023-08-18] MEDS: SYNTHROID 50 MCG PO (05:04)
[2023-08-18] MEDS: ROXICODONE 5 MG PO (05:04)
[2023-08-18 07:08] LABS: Hematocrit 25.6 % (37.0-47.0); Hemoglobin 8.4 g/dL (12.0-16.0); Mean Corp Hgb Conc. 32.8 g/dL (33.0-37.0); Mean Corpuscular Hgb 30.7 pg (27.0-31.0); Mean Corpuscular Volume 93.4 fL (81.0-99.0); Mean Platelet Volume 9.5 fL (7.4-10.4); Platelet Count 268 10^3/uL (130-400); Red Blood Cell Count 2.74 10^6/uL (4.20-5.40); Red Cell Dist. Width 13.9 % (11.5-14.5)
[2023-08-18 07:20] VITALS: BP 113/58
[2023-08-18] MEDS: LEXAPRO 10 MG PO (07:31)
[2023-08-18] MEDS: COLACE 100 MG PO ×2 (07:31→19:31)
[2023-08-18] MEDS: TYLENOL 1000 MG PO ×3 (07:31→21:00)
[2023-08-18] MEDS: CELEBREX 100 MG PO ×2 (07:31→19:30)
[2023-08-18] MEDS: ASPIRIN 325 MG PO (07:31)
[2023-08-18] MEDS: PROTONIX 40 MG PO (07:31)
[2023-08-18 08:14] LABS: Erythrocyte Sed Rate 48 mm/hour (0-20)
[2023-08-18 09:14] VITALS: BP 129/71; PULSE 73; O2SAT 97
--- NOTE | 2023-08-18 14:38 | CM ---
Addendum entered by Nilam Ariza 08/18/23 14:39:
Peer to peer denied. SNF backup and referrals sent. Needs auth.
Original Note:
Awaiting peer to peer determination.
--- NOTE | 2023-08-18 15:15 | W.PN.HOSP.TC ---
Today's Communication/Plan
-
DC planning
Assessment / Plan
Assessment / Plan
Assessment:
Left Hip Fracture
- X-ray: Comminuted acute fracture of the intertrochanteric left proximal femur with displacement
- s/p left cephalomedullary nail 08/12
- Patient may be WBAT with assistive device
- ASA 325 mg daily x 4 weeks for DVT ppx.
- Maintain surgical dressing until 7-10 days post-op. Staple removal at 2 weeks post-op.
- Ortho f/u OP
- PT/OT - agreeable to rehab placement (SNF vs Acute Rehab pending auth)
Fall at Home
- Unclear mechanism of fall and patient denies any obvious stumble or any prodrome of dizziness, lightheadedness, etc.
- no events on tele
- PT/OT - agreeable to rehab placement
- Patient does note that she had two glasses of wine with dinner tonight (typically has 1) - this may have contributed to her fall.
Neck pain
- CT Cspine: Degenerative changes. No fracture.
Mild leukocytosis-resolved. Cannot rule out reactive to surgery
Chronic cough with CT chest findings as below
- CT chest (performed on follow up of lingular consolidation seen on C. Spine CT) shows: MILD to MODERATE MULTIFOCAL PERIPHERAL ENDOBRONCHIAL INFECTION (greatest in the inferior lingula). Mild to moderate amount of multifocal peripheral
endobronchial impaction, bronchial wall thickening, and peripheral tree-in-bud endobronchial opacities. Atypical mycobacterial infection is a diagnostic possibility.
-Not acting like typical bacterial pneumonia. Suspect chronic infectious diseases.
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 Follow-up with pulmonary as outpatient. No indication for antibiotics currently. doubt bacterial pneumonia.off of abx.
Acute anemia secondary to acute blood loss- H&H is stable. She is not symptomatic without any chest pain or weakness/fatigue.
Hypothyroidism
- Stable. continue current T4 supplementation.
GERD
- Stable. continue daily PPI.
Anxiety/Depression
- Stable. continue Lexapro.
- Melatonin PRN for insomnia.
Chronic low back pain
- continue Celebrex
DVT Prophylaxis: SCDs + ASA per Ortho.
Code Status: Full
DC in am to rehab likely
DW CM
Anticipated Discharge: Within 24 hours
Subjective/Interval History
-
Date of Service: August 18, 2023
Pain From left fracture repair site is okay
Objective Data
-
Labs:
Laboratory Results
08/18/23
06:01
WBC 8.0
Hgb 8.4 L
Hct 25.6 L
Plt Count 268
Vital Signs:
Vital Signs
Temp Pulse Resp BP Pulse Ox
97.7 F 68 14 113/58 97
08/18/23 07:20 08/18/23 07:20 08/18/23 07:20 08/18/23 07:20 08/18/23 07:20
I&O
08/17/23 08/18/23 08/19/23
06:59 06:59 06:59
Intake Total 720 / 720 1560 / 1560
Balance 720 / 720 1560 / 1560
Review of Systems
-
Respiratory: Reports Cough; Denies Trouble Breathing
Cardiac: Denies Chest Pain
Abdomen/GI: Denies Abdominal Pain, Nausea or Vomiting
Neuro: Denies Dizzy
Physical Exam
-
General: No Apparent Distress
HEENT: Moist Mucous Membranes
Respiratory: Clear to Auscultation
Cardiac: Regular Rhythm and S1/S2
Neuro: AO x 3
Data Reviewed
-
Labs: Labs Reviewed by me
[2023-08-18 15:20] VITALS: BP 130/74
[2023-08-18] MEDS: MELATONIN 3 MG PO (20:51)
[2023-08-18] MEDS: NON-FORMULARY ITEM 1 UNIT PO (20:52)
[2023-08-18] MEDS: REFRESH EYE DROPS (PF) 1 DROPS OPHTH (20:52)
[2023-08-18] MEDS: NON-FORMULARY ITEM 1 UNIT OPHTH (20:53)
[2023-08-18] MEDS: SENOKOT PO (20:56)
[2023-08-18 23:06] VITALS: BP 109/55
[2023-08-19] MEDS: SYNTHROID 50 MCG PO (05:50)
[2023-08-19] MEDS: TYLENOL 1000 MG PO ×3 (07:23→20:59)
[2023-08-19] MEDS: CELEBREX 100 MG PO ×2 (07:23→20:45)
[2023-08-19] MEDS: ASPIRIN 325 MG PO (07:23)
[2023-08-19] MEDS: LEXAPRO 10 MG PO (07:23)
[2023-08-19] MEDS: PROTONIX 40 MG PO (07:23)
[2023-08-19] MEDS: COLACE 100 MG PO ×2 (07:23→20:45)
[2023-08-19] MEDS: ROXICODONE 5 MG PO (08:25)
[2023-08-19 09:06] VITALS: BP 135/59
[2023-08-19 09:10] VITALS: BP 146/70; PULSE 70; O2SAT 97
[2023-08-19 10:20] VITALS: BP 110/59; PULSE 78
--- NOTE | 2023-08-19 14:41 | W.PN.HOSP.TC ---
Today's Communication/Plan
-
DC
Assessment / Plan
Assessment / Plan
Assessment:
Left Hip Fracture
- X-ray: Comminuted acute fracture of the intertrochanteric left proximal femur with displacement
- s/p left cephalomedullary nail 08/12
- Patient may be WBAT with assistive device
- ASA 325 mg daily x 4 weeks for DVT ppx.
- Maintain surgical dressing until 7-10 days post-op. Staple removal at 2 weeks post-op.
- Ortho f/u OP
- PT/OT - agreeable to rehab placement
Fall at Home
- Unclear mechanism of fall and patient denies any obvious stumble or any prodrome of dizziness, lightheadedness, etc.
- no events on tele
- PT/OT - agreeable to rehab placement
- Patient does note that she had two glasses of wine with dinner tonight (typically has 1) - this may have contributed to her fall.
Neck pain
- CT Cspine: Degenerative changes. No fracture.
Mild leukocytosis-resolved. Cannot rule out reactive to surgery
Chronic cough with CT chest findings as below
- CT chest (performed on follow up of lingular consolidation seen on C. Spine CT) shows: MILD to MODERATE MULTIFOCAL PERIPHERAL ENDOBRONCHIAL INFECTION (greatest in the inferior lingula). Mild to moderate amount of multifocal peripheral
endobronchial impaction, bronchial wall thickening, and peripheral tree-in-bud endobronchial opacities. Atypical mycobacterial infection is a diagnostic possibility.
-Not acting like typical bacterial pneumonia. Suspect chronic infectious diseases.
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 Follow-up with pulmonary as outpatient. No indication for antibiotics currently. doubt bacterial pneumonia.off of abx.
Acute anemia secondary to acute blood loss- H&H is stable. She is not symptomatic without any chest pain or weakness/fatigue.
Hypothyroidism
- Stable. continue current T4 supplementation.
GERD
- Stable. continue daily PPI.
Anxiety/Depression
- Stable. continue Lexapro.
- Melatonin PRN for insomnia.
Chronic low back pain
- continue Celebrex
DVT Prophylaxis: SCDs + ASA per Ortho.
Code Status: Full
Medically stable for discharge
Discussed with case management-pending authorization
Total discharge 32 minutes
Anticipated Discharge: Today
Subjective/Interval History
-
Date of Service: August 19, 2023
Voices no specific complaints. Mobilizing better with less pain from the left hip area
Objective Data
-
Vital Signs:
Vital Signs
Temp Pulse Resp BP Pulse Ox
97.8 F 67 16 135/59 98
08/19/23 09:06 08/19/23 09:06 08/19/23 09:06 08/19/23 09:06 08/19/23 09:06
I&O
08/18/23 08/19/23 08/20/23
06:59 06:59 06:59
Intake Total 1560 / 1560 1410 / 1410
Balance 1560 / 1560 1410 / 1410
Review of Systems
-
Constitutional: Denies Fever
Respiratory: Denies Trouble Breathing
Cardiac: Denies Chest Pain
Abdomen/GI: Denies Nausea or Vomiting
Neuro: Denies Dizzy
Physical Exam
-
General: No Apparent Distress
HEENT: Moist Mucous Membranes
Respiratory: Clear to Auscultation
Cardiac: Regular Rhythm and S1/S2
GI: Soft
Neuro: AO x 3
Psych: Calm
--- NOTE | 2023-08-19 14:49 | W.DS.TRANS ---
DC Summary - Education Supervisor
-
Discharge Instructions:
Discharge Diagnosis/Procedures Left Hip Fracture
- X-ray: Comminuted acute fracture of the
intertrochanteric left proximal femur with
displacement
- s/p left cephalomedullary nail 08/12
Diet Regular
Activity As tolerated
Driving Restrictions No driving
Other Services PT,OT
Instructions:
Stand-Alone Forms:
Changes to Home Medications: Yes
Discharge Medications:
DC Medications w/original date entered in [employer]
ascorbic acid (vitamin C) 500 mg tablet (Vitamin C) 500 mg PO DAILY Supplement 08/12/23
biotin 10,000 mcg chewable tablet (Hair, Skin and Nails (biotin)) 1 mcg PO DAILY Supplement 08/12/23
celecoxib 100 mg capsule (Celebrex) 100 mg PO BID Pain 08/12/23
escitalopram oxalate 10 mg tablet 10 mg PO DAILY Depression 08/12/23
zeytrfxjblv-enmkaxanx-mngb523-hyal 750 mg-100 mg-125 mg-1.65 mg tablet (Glucosamine Chondroit Complx Advan) 1 tab PO DAILY Supplement 08/12/23
guaifenesin 400 mg tablet (Mucus Relief) 400 mg PO Q4H PRN congestion 08/12/23
levothyroxine 50 mcg tablet 50 mcg PO DAILY Thyroid 08/12/23
meclizine 25 mg tablet (Dramamine (meclizine)) 25 mg PO BID PRN dizziness 08/12/23
melatonin 3 mg tablet 3 mg PO HS Sleep 08/12/23
wnogaxzr-nbm-ijuuo ac 400 mcg-calcium carb 500 mg-vit K1 20 mcg tablet (Women's 50 Plus Multivitamin) 1 tab PO DAILY Supplement 08/12/23
omeprazole 20 mg capsule,delayed release 20 mg PO DAILY Gastrointestinal Issue 08/12/23
vitamin B complex 1 tab PO DAILY Supplement 08/12/23
acetaminophen 500 mg tablet (Tylenol Extra Strength) 1,000 mg (2 x 500 mg) PO TID #1 tab 08/19/23
aspirin 325 mg tablet 325 mg PO DAILY #1 tab 08/19/23
docusate sodium 100 mg capsule 100 mg PO BID #1 cap 08/19/23
oxycodone 5 mg tablet 5 mg PO Q4HPRN PRN moderate pain #12 tabs 08/19/23
polyethylene glycol 3350 17 gram oral powder packet (HealthyLax) 17 g PO DAILY PRN Constipation #14 ea 08/19/23
polyvinyl alcohol-povidone (PF) 1.4 %-0.6 % eye drops in a dropperette (Refresh Classic (PF)) 1 drops ophthalmic (eye) HS #1 ea 08/19/23
sennosides 8.6 mg tablet (Senna Laxative) 17.2 mg (2 x 8.6 mg) PO HS #1 tab 08/19/23
Home Medication Changes
New Medication-senna, MiraLAX, oxycodone, Colace, aspirin for DVT prophylaxis
Pending Results: No
[2023-08-19 15:00] VITALS: BP 138/65
--- NOTE | 2023-08-19 15:12 | CM ---
Patient has been accepted to [facility] for fpc and rehab services. Insurance auth with [employer] required. Auth initiated and documents faxed to [phone]. Confirmed fax receipt. Pending Auth reference # [id number]. Awaiting
determination. Patient, , daughter, team notified.
WHEN AUTH RECEIVED, NURSE TO NURSE REPORT # [phone]
FAX # [phone]
--- NOTE | 2023-08-19 15:58 | W.DCSUMMARY ---
Addendum entered and electronically signed by Jignesh Vu MD 08/20/23 10:51:
Date of discharge :08/20/23
Original Note:
Discharge Summary
Discharge Data
Date of Admission: 08/12/23
Date of Discharge: 08/19/23
-
Pending Results: No
Hospital Course
Primary diagnosis:
Comminuted acute fracture of the intertrochanteric left proximal femur with displacement
- s/p left cephalomedullary nail 08/12
Acute anemia secondary to acute blood loss/ No transfusion
Secondary diagnosis:
Pulmonary Mycobacterium avium intracellulare infection
Anxiety/Depression
Chronic low back pain
Pleasant
Gastroesophageal reflux disease
Hospital course:
Patient mechanical fall leading onto left proximal femur fracture which was treated as above. Postoperatively she had drop in H&H but did not require any transfusion. Hemoglobin dropped from 3.6-8.4 which stabilized in eights. She was
asymptomatic.No indication for transfusion present.
A chest CT was obtained due to right upper lobe opacity identified on cervical spine CT which was done for fall workup.
It showed mild to moderate multifocal peripheral endobronchial infection (greatest in the inferior lingula). Mild to moderate amount of multifocal peripheral endobronchial impaction, bronchial wall thickening, and peripheral tree-in-bud
endobronchial opacities. Atypical mycobacterial infection is a diagnostic possibility. We did find out later that she does have a history of pulmonary ELIA infection not on treatment. Was seen by ID. There was no concern of active bacterial
infection and no antibiotics were recommended.
Consultants on board:
Orthopedic surgeon Rizwan Peterson
Infectious disease-Romelia Harding
Discharge Plan
-
Patient Disposition: Residential/SNF
Discharge Diagnosis/Procedures: Left Hip Fracture
- X-ray: Comminuted acute fracture of the intertrochanteric left proximal femur with displacement
- s/p left cephalomedullary nail 08/12
Diet: Regular
Activity: As tolerated
Driving Restrictions: No driving
Other Services: PT and OT
Referrals:
Rizwan Fitzgerald MD [Active] - in two weeks
Roney Astudillo MD [Family Provider] -
Prescriptions:
New
aspirin 325 mg Tablet
325 mg PO DAILY Qty: 1 0RF
Rx Instructions:
for 4 weeks for DVT prophylaxis
docusate sodium 100 mg Capsule
100 mg PO BID Qty: 1 0RF
polyethylene glycol 3350 [HealthyLax] 17 gram Powder In Packet
17 g PO DAILY PRN (Reason: Constipation) Qty: 14 0RF
sennosides [Senna Laxative] 8.6 mg Tablet
17.2 mg PO HS Qty: 1 0RF
acetaminophen [Tylenol Extra Strength] 500 mg Tablet
1,000 mg PO TID Qty: 1 0RF
oxycodone 5 mg Tablet
5 mg PO Q4HPRN PRN (Reason: moderate pain) Qty: 12 0RF
Refresh Classic (PF) 1.4-0.6 % Dropperette
1 drops ophthalmic (eye) HS Qty: 1 0RF
Continued
levothyroxine 50 mcg Tablet
50 mcg PO DAILY
vitamin B complex Tablet Extended Release
1 tab PO DAILY
melatonin 3 mg Tablet
3 mg PO HS
ascorbic acid (vitamin C) [Vitamin C] 500 mg Tablet
500 mg PO DAILY
meclizine [Dramamine (meclizine)] 25 mg Tablet
25 mg PO BID PRN (Reason: dizziness)
escitalopram oxalate 10 mg Tablet
10 mg PO DAILY
Glucos Chond Cplx Advanced 750 mg-100 mg- 125 mg-1.65 mg Tablet
1 tab PO DAILY
Women's 50 Plus Multivitamin 400 mcg-500 mg calcium-20 mcg Tablet
1 tab PO DAILY
Hair, Skin and Nails (biotin) 10,000 mcg Tablet,Chewable
1 mcg PO DAILY
omeprazole 20 mg capsule,delayed release(DR/EC)
20 mg PO DAILY
Patient Comments:
08/12/2023: Home list written as 50mg, but pharmacy filled as 20mg
guaifenesin [Mucus Relief] 400 mg Tablet
400 mg PO Q4H PRN (Reason: congestion)
Held
celecoxib [Celebrex] 100 mg Capsule
100 mg PO BID
Hold Instructions: Resume on 09/16/23.
Discharge Orders:
Discharge Patient (As Directed); Ordered 08/19/23
Ordered By: Jignesh Vu
Discharge Date and Time
Print Language: PUERTO RICAN
[2023-08-19] MEDS: SENOKOT 17.1999999999999993 MG PO (20:58)
[2023-08-19] MEDS: NON-FORMULARY ITEM 1 UNIT PO (20:59)
[2023-08-19] MEDS: REFRESH EYE DROPS (PF) OPHTH ×2 (20:59→21:06)
[2023-08-19] MEDS: NON-FORMULARY ITEM 1 UNIT OPHTH (20:59)
[2023-08-19 23:12] VITALS: BP 123/64
[2023-08-20] MEDS: SYNTHROID 50 MCG PO ×2 (05:55→09:35)
--- NOTE | 2023-08-20 07:32 | W.PN.UPDATE ---
Update Note
Progress Note Update
Patient is resting comfortably in bed this morning. She does report some discomfort in her left hip with movement. She states that her dressings were changed yesterday.
LLE: Aquacel x2 to left hip, clean dry and intact. Mild expected edema to left hip. Mild general tenderness to palpation of the left hip. Able to plantarflex/dorsiflex the ankle. Calf soft and nontender NVI distally
Plan:
-Weight bearing as tolerated left leg. Ambulate with walker
-PT/OT
-Aspirin 325mg daily x4 weeks postop for DVT prophylaxis
-Maintain Aquacel dressing. May remove 7-10 days postop
-Sharples to be removed at two weeks postop
-Follow up outpatient in 4 weeks for xrays
-Discharge when stable
-Orthopedics will sign off
[2023-08-20 07:36] VITALS: BP 141/78
[2023-08-20] MEDS: COLACE 100 MG PO ×2 (09:34→19:32)
[2023-08-20] MEDS: CELEBREX 100 MG PO ×2 (09:34→19:32)
[2023-08-20] MEDS: PROTONIX 40 MG PO (09:34)
[2023-08-20] MEDS: TYLENOL 1000 MG PO ×3 (09:34→21:16)
[2023-08-20] MEDS: LEXAPRO 10 MG PO (09:35)
--- NOTE | 2023-08-20 10:47 | W.PN.HOSP.TC ---
Today's Communication/Plan
-
DC
Assessment / Plan
Assessment / Plan
Assessment:
Left Hip Fracture
- X-ray: Comminuted acute fracture of the intertrochanteric left proximal femur with displacement
- s/p left cephalomedullary nail 08/12
- Patient may be WBAT with assistive device
- ASA 325 mg daily x 4 weeks for DVT ppx.
- Maintain surgical dressing until 7-10 days post-op. Staple removal at 2 weeks post-op.
- Ortho f/u OP
- PT/OT - agreeable to rehab placement
Fall at Home
- Unclear mechanism of fall and patient denies any obvious stumble or any prodrome of dizziness, lightheadedness, etc.
- no events on tele
- PT/OT - agreeable to rehab placement
- Patient does note that she had two glasses of wine with dinner tonight (typically has 1) - this may have contributed to her fall.
Neck pain
- CT Cspine: Degenerative changes. No fracture.
Mild leukocytosis-resolved. Cannot rule out reactive to surgery
Chronic cough with CT chest findings as below
- CT chest (performed on follow up of lingular consolidation seen on C. Spine CT) shows: MILD to MODERATE MULTIFOCAL PERIPHERAL ENDOBRONCHIAL INFECTION (greatest in the inferior lingula). Mild to moderate amount of multifocal peripheral
endobronchial impaction, bronchial wall thickening, and peripheral tree-in-bud endobronchial opacities. Atypical mycobacterial infection is a diagnostic possibility.
-Not acting like typical bacterial pneumonia. Suspect chronic infectious diseases.
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 Follow-up with pulmonary as outpatient. No indication for antibiotics currently. doubt bacterial pneumonia.off of abx.
Acute anemia secondary to acute blood loss- H&H is stable. She is not symptomatic without any chest pain or weakness/fatigue.
Hypothyroidism
- Stable. continue current T4 supplementation.
GERD
- Stable. continue daily PPI.
Anxiety/Depression
- Stable. continue Lexapro.
- Melatonin PRN for insomnia.
Chronic low back pain
- continue Celebrex
DVT Prophylaxis: SCDs + ASA per Ortho.
Code Status: Full
Medically stable for discharge
Await placement
More than 30 minutes spent in discharge including
Final examination of the patient
Summarizing hospital stay
Instructions for continuing care to all relevant caregivers
Preparation of discharge records, prescriptions, and referral forms
Total time spent (in minutes): 35
Anticipated Discharge: Today
Subjective/Interval History
-
Date of Service: August 20, 2023
No overnight events
Objective Data
-
Vital Signs:
Vital Signs
Temp Pulse Resp BP Pulse Ox
98.5 F 68 16 141/78 96
08/20/23 07:36 08/20/23 07:36 08/20/23 07:36 08/20/23 07:36 08/20/23 07:36
I&O
08/19/23 08/20/23 08/21/23
06:59 06:59 06:59
Intake Total 1410 / 1410 1440 / 1440
Balance 1410 / 1410 1440 / 1440
Review of Systems
-
Respiratory: Reports Cough (Chronic); Denies Trouble Breathing
Cardiac: Denies Chest Pain
Abdomen/GI: Denies Nausea, Vomiting or Constipated
Neuro: Denies Dizzy
Physical Exam
-
General: Comfortable
Respiratory: Non Labored Respirations; Negative Accessory Resp Muscle Use
Neuro: AO x 3
Psych: Calm; Negative Confused or Agitated
--- NOTE | 2023-08-20 11:37 | CM ---
Addendum entered by ZOILA Sanabria 08/20/23 17:15:
Per RN patient was denied for SNF. She was advised that determination can be appealed by the Physician Advisor by calling [phone]. SW will need to call in the am.
Addendum entered by ZOILA Sanabria 08/20/23 16:37:
Thus far no determination has been provided by patient's insurance company. Will need to call in the morning to determine patient status.
Addendum entered by ZOILA Sanabria 08/20/23 12:49:
TT Dr. Sharp to request peer to peer.
Original Note:
Received notification from [employer] that patient needs a peer to peer review. Dr. Vu updated.
# for MD to call [phone].
Plan: Case management will continue to follow and assist with discharge planning. Hopeful transfer to skilled once auth is obtained.
--- NOTE | 2023-08-20 14:36 | PN.CDI ---
CDI
- -
CDI:
Physician Documentation Request
Admit Date: 08/12/23 23:15
Dear Doctor Horace,
Patient admitted with left hip fracture.
ED note, '...concerns of left-sided hip discomfort after a trip and fall.
08/19 PN, 'Fall at Home- Unclear mechanism of fall.'
Please clarify in your note the likely etiology/ etiologies of the left hip fracture:
Multifactorial due to low level fall and age-related osteoporosis
Low level fall only
Other
Use of terms such as suspected, likely, concern for, or probable (associated with a specific diagnosis that is being evaluated, monitored, or treated as if it exists) are acceptable and can be coded in the inpatient setting, when documented at the
time of discharge.
Thank you,
Awilda HOGUE,RN,CCDS
CDI Specialist
Available via tiger text
Please use your independent medical judgment in providing your response.
[2023-08-20 15:20] VITALS: BP 120/61
--- NOTE | 2023-08-20 15:41 | PTCARENOTE ---
Pt and pt daughter waiting on peer to peer review to take place for insurance auth. Both parties updated on delays. Pt pain controlled with scheduled Tylenol.
--- NOTE | 2023-08-20 17:00 | PTCARENOTE ---
Jarett Texted manager quality systems that UC told RN someone called from phone number [phone] stating this patient was denied SNF coverage. UC does not know name of person who called/group they called from.
[2023-08-20] MEDS: ASPIRIN 325 MG PO (17:19)
[2023-08-20] MEDS: REFRESH EYE DROPS (PF) OPHTH (21:16)
[2023-08-20] MEDS: NON-FORMULARY ITEM 1 UNIT OPHTH (21:16)
[2023-08-20] MEDS: SENOKOT 17.1999999999999993 MG PO (21:16)
[2023-08-20] MEDS: NON-FORMULARY ITEM 1 UNIT PO (21:16)
[2023-08-20] MEDS: MELATONIN 3 MG PO (21:29)
[2023-08-20 23:09] VITALS: BP 123/82
[2023-08-21 07:05] VITALS: BP 116/73
[2023-08-21 09:05] VITALS: BP 137/64; PULSE 69
[2023-08-21] MEDS: PROTONIX 40 MG PO (09:07)
[2023-08-21] MEDS: LEXAPRO 10 MG PO (09:07)
[2023-08-21] MEDS: COLACE 100 MG PO (09:07)
[2023-08-21] MEDS: CELEBREX 100 MG PO (09:07)
[2023-08-21] MEDS: ASPIRIN 325 MG PO (09:08)
[2023-08-21] MEDS: TYLENOL 1000 MG PO ×2 (09:08→15:35)
--- NOTE | 2023-08-21 09:13 | CM ---
Addendum entered by Nicole Quintana [facility] 08/21/23 14:46:
2S cash room clerk stated that p/u time will be 17:00. Family updated.
Addendum entered by Nicole Quintana [facility] 08/21/23 13:50:
Spoke with patient's daughter and son in law to update that patient is still denied through insurance. Patient's daughter stated that she would pay privately. Put her in touch with Najma in admissions at [facility] who discussed financial terms of the
stay and patient's family agreeable to paying out of pocket for a few weeks while she rehabs.
#For Report [phone] and fax# [phone]
Will update RN and community development technician.
Addendum entered by Nicole Quintana [facility] 08/21/23 13:10:
Spoke with several representatives at [facility], Joyce, [place] and [place] as calls kept going to different departments. Ultimately in speaking with Joyce she stated that patient was denied. Will update family.
Addendum entered by Nicole Quintana [facility] 08/21/23 11:09:
Spoke with Physician advisor who stated that he was advised that clinical will need to go back through, (fax) Authorization [id number]
That is an expedited fax.
Addendum entered by Nicole Quintana [facility] 08/21/23 10:39:
Received text back from MD advisor who stated that the number provided was incorrect. Placed a call to patient's insurance and was advised by a hobbies and crafts sales representative named, Obie, that the number to call is [phone]. Provided that to Physical Advisor
who stated that he would call.
Original Note:
Received notification that patient was denied for SNF but can still appeal. Texted Dr. Gonzalez to do the appeal provided # for appeal (in previous note). He stated that he will.
Plan: Case management will continue to follow and assist with discharge planning. [facility].
--- NOTE | 2023-08-21 09:14 | W.PN.HOSP.TC ---
Addendum entered and electronically signed by Jignesh Vu MD 08/23/23 17:53:
Fracture left hip due to low level fall
Original Note:
Today's Communication/Plan
-
DC
Assessment / Plan
Assessment / Plan
Assessment:
Left Hip Fracture
- X-ray: Comminuted acute fracture of the intertrochanteric left proximal femur with displacement
- s/p left cephalomedullary nail 08/12
- Patient WBAT with assistive device
- ASA 325 mg daily x 4 weeks for DVT ppx.
- Maintain surgical dressing until 7-10 days post-op. Staple removal at 2 weeks post-op.
- Ortho f/u OP
- PT/OT - agreeable to rehab placement
Fall at Home
- Unclear mechanism of fall and patient denies any obvious stumble or any prodrome of dizziness, lightheadedness, etc.
- no events on tele
- PT/OT - agreeable to rehab placement
- Patient does note that she had two glasses of wine with dinner tonight (typically has 1) - this may have contributed to her fall.
Neck pain
- CT Cspine: Degenerative changes. No fracture.
Mild leukocytosis-resolved. Cannot rule out reactive to surgery
Chronic cough with CT chest findings as below
- CT chest (performed on follow up of lingular consolidation seen on C. Spine CT) shows: MILD to MODERATE MULTIFOCAL PERIPHERAL ENDOBRONCHIAL INFECTION (greatest in the inferior lingula). Mild to moderate amount of multifocal peripheral
endobronchial impaction, bronchial wall thickening, and peripheral tree-in-bud endobronchial opacities. Atypical mycobacterial infection is a diagnostic possibility.
-Not acting like typical bacterial pneumonia. Suspect chronic infectious diseases.
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 Follow-up with pulmonary as outpatient. No indication for antibiotics currently. doubt bacterial pneumonia.off of abx.
Acute anemia secondary to acute blood loss- H&H is stable. She is not symptomatic without any chest pain or weakness/fatigue.
Hypothyroidism
- Stable. continue current T4 supplementation.
GERD
- Stable. continue daily PPI.
Anxiety/Depression
- Stable. continue Lexapro.
- Melatonin PRN for insomnia.
Chronic low back pain
- continue Celebrex
DVT Prophylaxis: SCDs + ASA per Ortho.
Code Status: Full
Medically stable for discharge
Await placement - rehab declined by insurance. Physician advisor making peer to peer call.
Anticipated Discharge: Today
Subjective/Interval History
-
Date of Service: August 21, 2023
No issues overnight. Awaiting placement.
Objective Data
-
Vital Signs:
Vital Signs
Temp Pulse Resp BP Pulse Ox
98.3 F 75 12 116/73 95
08/21/23 07:05 08/21/23 07:05 08/21/23 07:05 08/21/23 07:05 08/21/23 07:05
I&O
08/20/23 08/21/23 08/22/23
06:59 06:59 06:59
Intake Total 1440 / 1440 1660 / 1660
Balance 1440 / 1440 1660 / 1660
Review of Systems
-
Constitutional: Denies Fever
Respiratory: Denies Trouble Breathing
Cardiac: Denies Chest Pain
Abdomen/GI: Denies Abdominal Pain, Nausea or Vomiting
Musculoskeletal: Reports Other (Pain from the left hip improving)
Physical Exam
-
General: Comfortable
Respiratory: Non Labored Respirations; Negative Accessory Resp Muscle Use
Cardiac: Regular Rhythm and S1/S2
GI: Soft
Neuro: AO x 3
[2023-08-21 09:40] VITALS: BP 137/64; PULSE 69; O2SAT 96
[2023-08-21 15:05] VITALS: BP 114/69
[2023-08-21] MEDS: ROXICODONE 5 MG PO (15:39)
== END 2023-08-21 18:30 | DRG 481 ==
LOC: 2 SOUTH 23:15
PROVIDERS: Internal Medicine; ADMITTING PHYSICIAN Hospitalist; ATTENDING PHYSICIAN Internal Medicine; CONSULT PHYSICIAN Internal Medicine Infectious Disease; CONSULT PHYSICIAN Orthopaedic Surgery Hand Surgery; CONSULT PHYSICIAN Physical Medicine & Rehabilitation; EMERGENCY PHYSICIAN Emergency Medicine; FAMILY PHYSICIAN Internal Medicine
PROC: 0QH706Z Insertion of Intramedullary Internal Fixation Device into Left Upper Femur, Open Approach (ICD-10-PCS; 2023-08-13)
DX: S72.142A Displaced intertrochanteric fracture of left femur, initial encounter for closed fracture (principal); A31.0 Pulmonary mycobacterial infection; D62 Acute posthemorrhagic anemia; Z87.891 Personal history of nicotine dependence; W18.30XA Fall on same level, unspecified, initial encounter; Y92.009 Unspecified place in unspecified non-institutional (private) residence as the place of occurrence of the external cause; E03.9 Hypothyroidism, unspecified; K21.9 Gastro-esophageal reflux disease without esophagitis; F32.A Depression, unspecified; F41.9 Anxiety disorder, unspecified; M54.50 Low back pain, unspecified; G89.29 Other chronic pain
CPT/HCPCS: 70450; 71250; 72125; 73502; 73552; 76000; 80048; 80053; 81003; 81015; 84145; 85025; 85027; 85652; 86140; 86850; 86900; 86901; 93005; 96374; 97116; 97162; 97166; 97530; 97535; 99285; C1713

== ENCOUNTER → 2023-09-12 13:42 | Outpatient (REF) | payer OTHER, SELFPAY | LOC: HWRAD 13:42 | PROVIDERS: ATTENDING PHYSICIAN Internal Medicine; FAMILY PHYSICIAN Internal Medicine; REFERRING PHYSICIAN Orthopaedic Surgery Hand Surgery | DX: S72.142D Displaced intertrochanteric fracture of left femur, subsequent encounter for closed fracture with routine healing (principal) | CPT/HCPCS: 73552 ==

== ENCOUNTER → 2023-12-06 16:12 | Outpatient (REF) | payer OTHER, SELFPAY | LOC: PAVMRI 16:12 | PROVIDERS: ATTENDING PHYSICIAN Physician Assistant; FAMILY PHYSICIAN Internal Medicine | DX: M54.16 Radiculopathy, lumbar region (principal); W19.XXXD Unspecified fall, subsequent encounter | CPT/HCPCS: 72148 ==